=== PATIENT | male | born 1965 | race Caucasian/White ===

== ENCOUNTER 2019-01-08 17:32 | Emergency (ER) | payer SELFPAY ==
[2019-01-08] MEDS ORDERED: Sodium Chloride 0.9% 1,000 ML IV ONE (18:01)
[2019-01-08] MEDS ORDERED: Ketorolac 30 MG/ML SDV IVPUSH ONE (18:11)
--- NOTE | 2019-01-08 18:34 | EDM.PDOC ---
ED HPI GENERAL MEDICAL PROBLEM - General Chief Complaint: Abdominal Pain Stated Complaint: BACK AND KNEE PAIN Time Seen by Provider: 01/08/19 17:41 Source of Information: Reports: Patient History Limitations: Reports: No Limitations - History of Present Illness INITIAL COMMENTS - FREE TEXT/NARRATIVE: HISTORY AND PHYSICAL: History of present illness: Patient is a 53-year-old male presents to the ED today with concern of mid back pain, diarrhea, nausea, and generalized abdominal pain 2-3 days. Patient states today he has had 4 episodes of watery diarrhea. Patient states he has not been on antibiotics recently. Patient states the abdominal pain starts in his mid back and radiates around to the front. Patient states the pain is worse when he moves and better when he lays down. Patient states he had one episode of vomiting today but does have a generalized nausea. Patient states he has not taken anything for the symptoms. Patient states he's had a little bit of shortness of breath but this is typical for his COPD and has not noticed and increase in shortness of breath. Patient has a history of multiple sclerosis, hypertension, COPD, hyperlipidemia , diabetes on oral medications, "small vessel disease of the heart." Patient denies fever, chills, chest pain, or cough. Denies headache, neck stiff ness, change in vision, syncope, or near syncope. Denies dysuria. Has not noted any blood in urine or stool. Review of systems: As per history of present illness and below otherwise all systems reviewed and negative. Past medical history: As per history of present illness and as reviewed below otherwise noncontributory. Surgical history: As per history of present illness and as reviewed below otherwise noncontributory. Social history: See social history for further information Family history: As per history of present illness and as reviewed below otherwise noncontributory. Physical exam: General: Patient is alert, oriented, and in no acute distress. Patient lay ing comfortably on exam table. HEENT: Atraumatic, normocephalic, pupils equal and reactive bilaterally, negative for conjunctival pallor or scleral icterus, mucous membranes moist, TMs normal bilaterally, throat clear, neck supple, nontender, trachea midline. No drooling or trismus noted. No meningeal signs. No hot potato voice noted. Lungs: Clear to auscultation, breath sounds equal bilaterally, chest nontender. Heart: S1S2, regular rate and rhythm without overt murmur Abdomen: Obese, soft, nondistended, generalized mild tenderness. Negative for masses or hepatosplenomegaly. Positive for costovertebral tenderness bilaterally. Pelvis: Stable nontender. Genitourinary: Deferred. Rectal: Deferred. Skin: Intact, warm, dry. No lesions or rashes noted. Extremities/musculoskeletal: Atraumatic, negative for cords or calf pain. Neurovascular unremarkable. No obvious deformities of the complete spine. No step-offs, crepitus, or pain with palpation of the complete spinous processes. Patient does have pain to palpation of the surrounding paraspinous muscles of the thoracic spine. Patient does have full range of motion of complete spine but does have pain with range of motion of the thoracic and lumbar spine. Neuro: Awake, alert, oriented. Cranial nerves II through XII unremarkable. Cerebellum unremarkable. Motor and sensory unremarkable throughout. Exam nonfocal. Notes: Patient was unable to leave a stool sample while in the ED. Stool collection supplies have been provided to him and instructed to limit our lab after he is able to leave sample. Voices understanding and is agreeable to plan of care. Denies any further questions or concerns at this time. Diagnostics: CBC, CMP, EKG, troponin, chest x-ray, UA, lipase, abd/pelvic CT, stool study, Ova and parasite, Cdiff Tox A/B Therapeutics: Saline, Toradol Zofran Prescription: Bentyl Impression: Generalized Abdominal pain, unspecified Diarrhea Plan: 1. Take medication as prescribed. You can alternate ibuprofen and Tylenol as directed for pain and discomfort. 2. Follow-up with your primary care provider as discussed. Return to the ED as needed and as discussed. Definitive disposition and diagnosis as appropriate pending reevaluation and review of above. Abdominal Pain Score (Numeric/FACES): 10 - Related Data Allergies Allergy/AdvReac Type Severity Reaction Status Date / Time No Known Allergies Allergy Verified 01/08/19 17:54 Home Meds: Home Meds Aspirin 81 mg PO DAILY 01/08/19 [History] Cetirizine HCl [Zyrtec] 10 mg PO DAILY 01/08/19 [History] Dicyclomine [Bentyl] 20 mg PO QID PRN #10 tablet 01/08/19 [Rx] Dimethyl Fumarate [Tecfidera] 240 mg PO DAILY 01/08/19 [History] Escitalopram [Lexapro] 20 mg PO DAILY 01/08/19 [History] Gabapentin [Neurontin] 800 mg PO BID 01/08/19 [History] Inhaler, Assist Devices [Aerochamber Mini] 1 each MC DAILY 01/08/19 [History] Lisinopril 10 mg PO DAILY 01/08/19 [History] Omeprazole 20 mg PO DAILY 01/08/19 [History] Ranolazine [Ranexa] 1,000 mg PO DAILY 01/08/19 [History] atorvaSTATin [Lipitor] 40 mg PO BEDTIME 01/08/19 [History] levETIRAcetam [Keppra] 500 mg PO DAILY 01/08/19 [History] metFORMIN [Glucophage XR] 1,000 mg PO BIDMEALS 01/08/19 [History] Past Medical History Cardiovascular History: Reports: High Cholesterol, Hypertension, Pulmonary Hypertension Respiratory History: Reports: COPD Musculoskeletal History: Reports: None Neurological History: Reports: MS Psychiatric History: Reports: Anxiety, Depression Endocrine/Metabolic History: Reports: Diabetes, Type II - Infectious Disease History Infectious Disease History: Reports: None - Past Surgical History HEENT Surgical History: Reports: Adenoidectomy, Tonsillectomy Social & Family History - Family History Family Medical History: Noncontributory - Tobacco Use Smoking Status *Q: Former Smoker Packs/Tins Daily: 1 Used Tobacco, but Quit: Yes Month/Year Tobacco Last Used: 18yr - Caffeine Use Caffeine Use: Reports: Coffee - Recreational Drug Use Recreational Drug Use: No ED ROS GENERAL - Review of Systems Review Of Systems: ROS reveals no pertinent complaints other than HPI. ED EXAM, GENERAL - Physical Exam Exam: See Below (see dictation) Course - Vital Signs Last Recorded V/S: Last Vital Signs Temp 36.6 C 01/08/19 17:55 Pulse 81 01/08/19 17:55 Resp 16 01/08/19 17:55 BP 122/74 01/08/19 17:55 Pulse Ox 97 01/08/19 17:55 - Orders/Labs/Meds Orders: Active Orders 24 hr Category Date Time Status EKG Documentation Completion [RC] STAT Care 01/08/19 18:02 Active CDIFF TOX A+B [OP] Stat Lab 01/08/19 18:02 Ordered CULTURE STOOL + CAMPY+SHIGATOX [RM] Stat Lab 01/08/19 18:02 Ordered OVA & PARASITES BY IMMUNOASSAY [MREF] Stat Lab 01/08/19 18:02 Ordered Labs: Laboratory Tests 01/08/19 01/08/19 01/08/19 Range/Units 18:35 18:35 18:35 WBC 10.19 (4.0-11.0) K/uL RBC 4.31 L (4.50-5.90) M/uL Hgb 13.5 (13.0-17.0) g/dL Hct 40.2 (38.0-50.0) % MCV 93.3 (80.0-98.0) fL MCH 31.3 (27.0-32.0) pg MCHC 33.6 (31.0-37.0) g/dL RDW Std Deviation 43.9 (28.0-62.0) fl RDW Coeff of [place] 13 (11.0-15.0) % Plt Count 339 (150-400) K/uL MPV 9.00 (7.40-12.00) fL Neut % (Auto) 79.9 (48.0-80.0) % Lymph % (Auto) 5.4 L (16.0-40.0) % [place] % (Auto) 10.1 (0.0-15.0) % Eos % (Auto) 4.4 (0.0-7.0) % Baso % (Auto) 0.2 (0.0-1.5) % Neut # (Auto) 8.1 H (1.4-5.7) K/uL Lymph # (Auto) 0.6 (0.6-2.4) K/uL [place] # (Auto) 1.0 H (0.0-0.8) K/uL Eos # (Auto) 0.5 (0.0-0.7) K/uL Baso # (Auto) 0.0 (0.0-0.1) K/uL Nucleated RBC % 0.0 /100WBC Nucleated RBCs # 0 K/uL Sodium 141 (136-148) mmol/L Potassium 3.9 (3.5-5.1) mmol/L Chloride 105 (98-107) mmol/L Carbon Dioxide 25.2 (21.0-32.0) mmol/L BUN 15 (7.0-18.0) mg/dL Creatinine 1.0 (0.8-1.3) mg/dL Est Cr Clr Drug Dosing 80.79 mL/min Estimated GFR (MDRD) > 60.0 ml/min Glucose 119 H (74-106) mg/dL Calcium 8.9 (8.5-10.1) mg/dL Total Bilirubin 0.6 (0.2-1.0) mg/dL AST 28 (15-37) IU/L ALT 66 H (14-63) IU/L Alkaline Phosphatase 52 (46-116) U/L Troponin I < 0.050 (0.000-0.056) ng/mL Total Protein 6.9 (6.4-8.2) g/dL Albumin 4.3 (3.4-5.0) g/dL Globulin 2.6 (2.6-4.0) g/dL Albumin/Globulin Ratio 1.7 H (0.9-1.6) Lipase 388 (73-393) U/L Urine Color Urine Appearance Urine pH (5.0-8.0) Ur Specific [place] (1.001-1.035) Urine Protein (NEGATIVE) mg/dL Urine Glucose (UA) (NEGATIVE) mg/dL Urine Ketones (NEGATIVE) mg/dL Urine Occult Blood (NEGATIVE) Urine Nitrite (NEGATIVE) Urine Bilirubin (NEGATIVE) Urine Ictotest Urine Urobilinogen (<2.0) EU/dL Ur Leukocyte Esterase (NEGATIVE) 01/08/19 Range/Units 19:00 WBC (4.0-11.0) K/uL RBC (4.50-5.90) M/uL Hgb (13.0-17.0) g/dL Hct (38.0-50.0) % MCV (80.0-98.0) fL MCH (27.0-32.0) pg MCHC (31.0-37.0) g/dL RDW Std Deviation (28.0-62.0) fl RDW Coeff of [place] (11.0-15.0) % Plt Count (150-400) K/uL MPV (7.40-12.00) fL Neut % (Auto) (48.0-80.0) % Lymph % (Auto) (16.0-40.0) % [place] % (Auto) (0.0-15.0) % Eos % (Auto) (0.0-7.0) % Baso % (Auto) (0.0-1.5) % Neut # (Auto) (1.4-5.7) K/uL Lymph # (Auto) (0.6-2.4) K/uL [place] # (Auto) (0.0-0.8) K/uL Eos # (Auto) (0.0-0.7) K/uL Baso # (Auto) (0.0-0.1) K/uL Nucleated RBC % /100WBC Nucleated RBCs # K/uL Sodium (136-148) mmol/L Potassium (3.5-5.1) mmol/L Chloride (98-107) mmol/L Carbon Dioxide (21.0-32.0) mmol/L BUN (7.0-18.0) mg/dL Creatinine (0.8-1.3) mg/dL Est Cr Clr Drug Dosing mL/min Estimated GFR (MDRD) ml/min Glucose (74-106) mg/dL Calcium (8.5-10.1) mg/dL Total Bilirubin (0.2-1.0) mg/dL AST (15-37) IU/L ALT (14-63) IU/L Alkaline Phosphatase (46-116) U/L Troponin I (0.000-0.056) ng/mL Total Protein (6.4-8.2) g/dL Albumin (3.4-5.0) g/dL Globulin (2.6-4.0) g/dL Albumin/Globulin Ratio (0.9-1.6) Lipase (73-393) U/L Urine Color YELLOW Urine Appearance CLEAR Urine pH 7.5 (5.0-8.0) Ur Specific [place] 1.020 (1.001-1.035) Urine Protein NEGATIVE (NEGATIVE) mg/dL Urine Glucose (UA) NEGATIVE (NEGATIVE) mg/dL Urine Ketones NEGATIVE (NEGATIVE) mg/dL Urine Occult Blood NEGATIVE (NEGATIVE) Urine Nitrite NEGATIVE (NEGATIVE) Urine Bilirubin SMALL H (NEGATIVE) Urine Ictotest NEGATIVE Urine Urobilinogen 0.2 (<2.0) EU/dL Ur Leukocyte Esterase NEGATIVE (NEGATIVE) Meds: Medications Discontinued Medications Generic Name Dose Route Start Last Admin Trade Name Freq PRN Reason Stop Dose Admin Sodium Chloride 1,000 mls @ 999 mls/hr 01/08/19 18:01 01/08/19 18:33 Normal Saline IV 01/08/19 19:01 999 mls/hr BOLUS ONE Administration Iopamidol 100 ml 01/08/19 19:27 01/08/19 19:28 Isovue Multipack-370 (76%) IVPUSH 01/08/19 19:28 100 ml ONETIME STA Administration Ketorolac Tromethamine 30 mg 01/08/19 18:11 01/08/19 18:35 Toradol IVPUSH 01/08/19 18:12 30 mg ONETIME ONE Administration Departure - Departure Time of Disposition: 20:29 Disposition: Home, Self-Care 01 Clinical Impression: Generalized abdominal discomfort Diarrhea Qualifiers: Diarrhea type: unspecified type Qualified Code(s): R19.7 - Diarrhea, unspecified - Discharge Information Referrals: PCP,Unknown [Primary Care Provider] - Forms: ED Department Discharge Additional Instructions: The following information is given to patients seen in the emergency department who are being discharged to home. This information is to outline your options for follow-up care. We provide all patients seen in our emergency department with a follow-up referral. The need for follow-up, as well as the timing and circumstances, are variable depending upon the specifics of your emergency department visit. If you don't have a primary care physician on staff, we will provide you with a referral. We always advise you to contact your personal physician following an emergency department visit to inform them of the circumstance of the visit and for follow-up with them and/or the need for any referrals to a consulting specialist. The emergency department will also refer you to a specialist when appropriate. This referral assures that you have the opportunity for follow-up care with a specialist. All of these measure are taken in an effort to provide you with optimal care, which includes your follow-up. Under all circumstances we always encourage you to contact your private physician who remains a resource for coordinating your care. When calling for follow-up care, please make the office aware that this follow-up is from your recent emergency room visit. If for any reason you are refused follow-up, please contact the [facility] Emergency Department at and asked to speak to the emergency department charge nurse. RENATA [facility] [address] [place] [address] [facility] [address] [place] [address] 1. Take medication as prescribed. You can alternate ibuprofen and Tylenol as directed for pain and discomfort. 2. Follow-up with your primary care provider as discussed. Return to the ED as needed and as discussed. - My Orders Last 24 Hours: My Active Orders 01/08/19 18:02 EKG Documentation Completion [RC] STAT CDIFF TOX A+B [OP] Stat CULTURE STOOL + CAMPY+SHIGATOX [RM] Stat OVA & PARASITES BY IMMUNOASSAY [MREF] Stat - Assessment/Plan Last 24 Hours: My Active Orders 01/08/19 18:02 EKG Documentation Completion [RC] STAT CDIFF TOX A+B [OP] Stat CULTURE STOOL + CAMPY+SHIGATOX [RM] Stat OVA & PARASITES BY IMMUNOASSAY [MREF] Stat
[2019-01-08 19:13] LABS: CHLORIDE,CL 105 mmol/L (98-107); SODIUM,NA 141 mmol/L (136-148)
[2019-01-08] MEDS ORDERED: Iopamidol 755 MG/ML 500 ML Multipack Bottle IVPUSH STA (19:27)
--- NOTE | 2019-01-08 19:47 | CR ---
INDICATION: SOB TECHNIQUE: Chest 1 view. COMPARISON: None. FINDINGS: Cardiovascular and mediastinum: Heart size and vasculature are normal in caliber and appearance. Mediastinum is within normal limits. Lungs and pleural space: Lungs are clear. No sign of infiltrate or mass. No sign of pleural effusion. No pneumothorax. Bones and soft tissues: No significant findings. IMPRESSION: Unremarkable chest. Dictated by: Jose J James MD @ 01/08/2019 19:46:01 (Electronically Signed)
--- NOTE | 2019-01-08 20:17 | CT ---
INDICATION: Abdominal pain, nausea, vomiting, diarrhea TECHNIQUE: CT abdomen and pelvis acquired with IV contrast. 100 cc Isovue 370 COMPARISON: None FINDINGS: Lower chest: Unremarkable. Liver: Hepatic steatosis. Spleen: Unremarkable. Pancreas: Unremarkable. Gallbladder and bile ducts: Unremarkable. Kidneys: Subcentimeter left renal cyst. Adrenal glands: Unremarkable. GI tract: Unremarkable. Appendix is normal. Vascular structures: Unremarkable. Lymph nodes: Unremarkable. Miscellaneous: Fat containing umbilical hernia. No free air or significant free fluid. Pelvic Organs: Mild prostatomegaly with diffuse bladder wall thickening. Bones: Unremarkable for age. IMPRESSION: No findings to explain the patient`s symptoms. Hepatic steatosis. Mild prostatomegaly with diffuse bladder wall thickening. Dictated by Jose J James MD @ 01/08/2019 8:16:09 PM Please note that all CT scans at this facility use dose modulation, iterative reconstruction, and/or weight-based dosing when appropriate to reduce radiation dose to as low as reasonably achievable. Dictated by: Jose J James MD @ 01/08/2019 20:16:30 (Electronically Signed)
== END 2019-01-08 20:48 | disposition home or self-care (01) ==
LOC: MW.ED 17:32
DX: R19.7 Diarrhea, unspecified (principal); I10 Essential (primary) hypertension; J44.9 Chronic obstructive pulmonary disease, unspecified; E11.9 Type 2 diabetes mellitus without complications; F41.9 Anxiety disorder, unspecified; F32.9 Major depressive disorder, single episode, unspecified; E78.00 Pure hypercholesterolemia, unspecified; Z79.82 Long term (current) use of aspirin; Z79.84 Long term (current) use of oral hypoglycemic drugs; Z79.899 Other long term (current) drug therapy
CPT/HCPCS: 71045; 74177; 80053; 81003; 83690; 84484; 85025; 93005; 96361; 96374; 99284; J1885; J7040; Q9967

== ENCOUNTER 2019-01-23 22:38 | Observation (INO) | payer OTHER ==
[2019-01-23] MEDS ORDERED: Ondansetron 4 MG/2 ML SDV IVPUSH ONE (22:49)
[2019-01-23] MEDS ORDERED: Sodium Chloride 0.9% 10 ML Syringe FLUSH PRN (22:49)
[2019-01-23] MEDS ORDERED: Sodium Chloride 0.9% 1,000 ML IV ONE (22:49)
[2019-01-23] MEDS ORDERED: Sodium Chloride 0.9% 2.5 ML Syringe FLUSH PRN (22:49)
--- NOTE | 2019-01-23 22:51 | EDM.PDOC ---
<Michell Meyer - Last Filed: 01/23/19 23:16> ED HPI GENERAL MEDICAL PROBLEM - General Chief Complaint: Gastrointestinal Problem Stated Complaint: PT VOMITING Time Seen by Provider: 01/23/19 22:48 Source of Information: Reports: Patient History Limitations: Reports: No Limitations - History of Present Illness INITIAL COMMENTS - FREE TEXT/NARRATIVE: HISTORY AND PHYSICAL: History of present illness: Patient is a 53-year-old male presents to the ED with complaint of vomiting and diarrhea. He states he has had multiple episodes of diarrhea since this morning. This afternoon he states he had 2 episodes of vomiting. He was having some back pain but took a norco and states this resolved. He did have some abdominal pain earlier as well. He denies chest, pain, SOB, fevers, chills. Review of systems: As per history of present illness and below otherwise all systems reviewed and negative. Past medical history: As per history of present illness and as reviewed below otherwise noncontributory. Surgical history: As per history of present illness and as reviewed below otherwise noncontributory. Social history: No reported history of drug or alcohol abuse. Family history: As per history of present illness and as reviewed below otherwise noncontributory. Physical exam: General: Patient sitting comfortably in no acute distress and nontoxic appearing HEENT: Atraumatic, normocephalic, pupils reactive, negative for conjunctival pallor or scleral icterus, mucous membranes moist, throat clear, neck supple, nontender, trachea midline. No meningeal signs. Lungs: Clear to auscultation, breath sounds equal bilaterally, chest nontender. Heart: S1S2, regular, negative for clicks, rubs, or overt murmur. Abdomen: Soft, nondistended, nontender. Negative for masses or hepatosplenomegaly. Negative for costovertebral tenderness. No rigidity, rebound , guarding. Pelvis: Stable nontender. Genitourinary: Deferred. Rectal: Deferred. Extremities: Atraumatic, negative for cords or calf pain. Neurovascular unremarkable. Neuro: Awake, alert, oriented. Cranial nerves II through XII unremarkable. Cerebellum unremarkable. Motor and sensory unremarkable throughout. Exam nonfocal. Notes: Diagnostics: CBC, CMP, Lipase, UA Therapeutics: 1L NS IV 4mg Zofran IV Prescriptions: Impression: Gastroenteritis Plan: Drink plenty of small sips of fluids throughout the day and bland food as tolerated Follow-up with primary care provider Return to ED as needed as discussed Definitive disposition and diagnosis as appropriate pending reevaluation and review of above. no pain Pain Score (Numeric/FACES): 0 - Related Data Allergies Allergy/AdvReac Type Severity Reaction Status Date / Time No Known Allergies Allergy Verified 01/23/19 22:41 Home Meds: Home Meds Aspirin 81 mg PO DAILY 01/08/19 [History] Cetirizine HCl [Zyrtec] 10 mg PO DAILY 01/08/19 [History] Dicyclomine [Bentyl] 20 mg PO QID PRN #10 tablet 01/08/19 [Rx] Dimethyl Fumarate [Tecfidera] 240 mg PO DAILY 01/08/19 [History] Escitalopram [Lexapro] 20 mg PO DAILY 01/08/19 [History] Gabapentin [Neurontin] 800 mg PO BID 01/08/19 [History] Inhaler, Assist Devices [Aerochamber Mini] 1 each MC DAILY 01/08/19 [History] Lisinopril 10 mg PO DAILY 01/08/19 [History] Omeprazole 20 mg PO DAILY 01/08/19 [History] Ranolazine [Ranexa] 1,000 mg PO DAILY 01/08/19 [History] atorvaSTATin [Lipitor] 40 mg PO BEDTIME 01/08/19 [History] levETIRAcetam [Keppra] 500 mg PO DAILY 01/08/19 [History] metFORMIN [Glucophage XR] 1,000 mg PO BIDMEALS 01/08/19 [History] Past Medical History Cardiovascular History: Reports: High Cholesterol, Hypertension, Pulmonary Hypertension Respiratory History: Reports: COPD Musculoskeletal History: Reports: None Neurological History: Reports: MS Psychiatric History: Reports: Anxiety, Depression Endocrine/Metabolic History: Reports: Diabetes, Type II - Infectious Disease History Infectious Disease History: Reports: None - Past Surgical History HEENT Surgical History: Reports: Adenoidectomy, Tonsillectomy Social & Family History - Family History Family Medical History: Noncontributory - Tobacco Use Smoking Status *Q: Never Smoker - Caffeine Use Caffeine Use: Reports: Coffee - Recreational Drug Use Recreational Drug Use: No ED ROS GENERAL - Review of Systems Review Of Systems: ROS reveals no pertinent complaints other than HPI. ED EXAM, GI/ABD - Physical Exam Exam: See Below (see dictation) Course - Vital Signs Last Recorded V/S: Last Vital Signs Temp 36.1 C 01/24/19 00:28 Pulse 88 01/24/19 00:28 Resp 18 01/24/19 00:28 BP 125/66 01/24/19 00:28 Pulse Ox 95 01/24/19 00:28 - Orders/Labs/Meds Orders: Active Orders 24 hr Category Date Time Status UA RFX STONEY AND CULT IF INDIC [URIN] Stat Lab 01/24/19 00:20 Received Sodium Chloride 0.9% [Saline Flush] Med 01/23/19 22:49 Active 10 ml FLUSH ASDIRECTED PRN Sodium Chloride 0.9% [Saline Flush] Med 01/23/19 22:49 Active 2.5 ml FLUSH ASDIRECTED PRN Saline Lock Insert [OM.PC] Stat Oth 01/23/19 22:49 Ordered Medication Orders Sodium Chloride (Saline Flush) 10 ml FLUSH ASDIRECTED PRN PRN Reason: Keep Vein Open Sodium Chloride (Saline Flush) 2.5 ml FLUSH ASDIRECTED PRN PRN Reason: Keep Vein Open Labs: Laboratory Tests 01/23/19 01/23/19 Range/Units 23:00 23:00 WBC 11.99 H (4.0-11.0) K/uL RBC 4.89 (4.50-5.90) M/uL Hgb 15.4 (13.0-17.0) g/dL Hct 45.8 (38.0-50.0) % MCV 93.7 (80.0-98.0) fL MCH 31.5 (27.0-32.0) pg MCHC 33.6 (31.0-37.0) g/dL RDW Std Deviation 44.6 (28.0-62.0) fl RDW Coeff of Carol 13 (11.0-15.0) % Plt Count 377 (150-400) K/uL MPV 10.00 (7.40-12.00) fL Neut % (Auto) 77.1 (48.0-80.0) % Lymph % (Auto) 13.2 L (16.0-40.0) % [place] % (Auto) 5.3 (0.0-15.0) % Eos % (Auto) 4.2 (0.0-7.0) % Baso % (Auto) 0.2 (0.0-1.5) % Neut # (Auto) 9.3 H (1.4-5.7) K/uL Lymph # (Auto) 1.6 (0.6-2.4) K/uL [place] # (Auto) 0.6 (0.0-0.8) K/uL Eos # (Auto) 0.5 (0.0-0.7) K/uL Baso # (Auto) 0.0 (0.0-0.1) K/uL Nucleated RBC % 0.0 /100WBC Nucleated RBCs # 0 K/uL Sodium 140 (136-148) mmol/L Potassium 3.3 L (3.5-5.1) mmol/L Chloride 101 (98-107) mmol/L Carbon Dioxide 23.0 (21.0-32.0) mmol/L BUN 12 (7.0-18.0) mg/dL Creatinine 1.1 (0.8-1.3) mg/dL Est Cr Clr Drug Dosing 73.44 mL/min Estimated GFR (MDRD) > 60.0 ml/min Glucose 160 H (74-106) mg/dL Calcium 9.5 (8.5-10.1) mg/dL Total Bilirubin 0.6 (0.2-1.0) mg/dL AST 29 (15-37) IU/L ALT 72 H (14-63) IU/L Alkaline Phosphatase 58 (46-116) U/L Total Protein 7.4 (6.4-8.2) g/dL Albumin 4.5 (3.4-5.0) g/dL Globulin 2.9 (2.6-4.0) g/dL Albumin/Globulin Ratio 1.6 (0.9-1.6) Lipase 657 H (73-393) U/L Meds: Medications Generic Name Dose Route Start Last Admin Trade Name Freq PRN Reason Stop Dose Admin Sodium Chloride 10 ml 01/23/19 22:49 Saline Flush FLUSH ASDIRECTED PRN Keep Vein Open Sodium Chloride 2.5 ml 01/23/19 22:49 Saline Flush FLUSH ASDIRECTED PRN Keep Vein Open Discontinued Medications Generic Name Dose Route Start Last Admin Trade Name Freq PRN Reason Stop Dose Admin Sodium Chloride 1,000 mls @ 999 mls/hr 01/23/19 22:49 01/23/19 23:08 Normal Saline IV 01/23/19 23:49 999 mls/hr STAT ONE Administration Ondansetron HCl 4 mg 01/23/19 22:49 01/23/19 23:08 Zofran IVPUSH 01/23/19 22:50 4 mg ONETIME ONE Administration Departure - Departure Disposition: Refer to Observation Condition: Good Clinical Impression: Gastroenteritis, Pancreatitis, Dehydration - Discharge Information Referrals: PCP,None [Primary Care Provider] - Forms: ED Department Discharge <Jerald Garland - Last Filed: 01/24/19 00:30> Course - Vital Signs Text/Narrative:: Patient's lab work was remarkable for elevated lipase at 657 patient's pain has improved he still does have some mild nausea I discussed with patient admission for observation and he agrees to discuss case with hospitalist admit patient is observation diagnosis of pancreatitis Departure - Departure Time of Disposition: 00:29
[2019-01-24 00:10] LABS: CHLORIDE,CL 101 mmol/L (98-107); SODIUM,NA 140 mmol/L (136-148)
[2019-01-24] MEDS ORDERED: Pantoprazole 40 MG in Sodium Chloride 0.9% 10 ML IV ONE (01:45)
[2019-01-24] MEDS ORDERED: Morphine 2 MG/ML Syringe IVPUSH PRN (01:46)
[2019-01-24] MEDS ORDERED: Ondansetron 4 MG/2 ML SDV IVPUSH PRN (01:48)
[2019-01-24] MEDS ORDERED: Sodium Chloride 0.9% 1,000 ML IV ONE (02:00)
[2019-01-24] MEDS: Sodium Chloride 0.9% 1,000 ML IV SCH ×3 (03:10→13:56)
[2019-01-24 06:50] LABS: CHLORIDE,CL 106 mmol/L (98-107); SODIUM,NA 141 mmol/L (136-148)
--- NOTE | 2019-01-24 08:25 | PCM.HP.2 ---
H&P History of Present Illness - General Date of Service: 01/24/19 Admit Problem/Dx: Admission Diagnosis/Problem Admission Diagnosis/Problem Pancreatitis - History of Present Illness Initial Comments - Free Text/Narative: His diarrhea started in the morning. He describes it as a liquid stool with no black or bloody stool. He started vomiting in the afternoon. He denies any bloody or bilious emesis. He denies any abdominal pain, fever, chills, chest pain, shortness of breath. He denies any recent sick contacts, new foods, recent antibiotics. The patient still has his gallbladder is never had any issues with it. The patient denies any alcohol use. In the ER, labs showed slight white count 11.9, CMP that any significant findings and elevated lipase at 657 and a UA without signs of infection. He was given IV fluids and Zofran. chronic back Pain Score (Numeric/FACES): 6 - Related Data Allergies/Adverse Reactions: Allergies Allergy/AdvReac Type Severity Reaction Status Date / Time No Known Allergies Allergy Verified 01/24/19 01:03 Home Medications: Home Meds Aspirin 81 mg PO DAILY 01/08/19 [History] Dimethyl Fumarate [Tecfidera] 240 mg PO DAILY 01/08/19 [History] Escitalopram [Lexapro] 20 mg PO DAILY 01/08/19 [History] Gabapentin [Neurontin] 800 mg PO BID 01/08/19 [History] Inhaler, Assist Devices [Aerochamber Mini] 1 each MC DAILY 01/08/19 [History] Lisinopril 10 mg PO DAILY 01/08/19 [History] Omeprazole 40 mg PO DAILY 01/08/19 [History] Ranolazine [Ranexa] 1,000 mg PO DAILY 01/08/19 [History] atorvaSTATin [Lipitor] 40 mg PO DAILY 01/08/19 [History] levETIRAcetam [Keppra] 500 mg PO BID 01/08/19 [History] metFORMIN [Glucophage XR] 1,000 mg PO BIDMEALS 01/08/19 [History] Acetaminophen/HYDROcodone [[place] 325-10 MG] 1 tab PO Q4H PRN 01/24/19 [History] Multivit with Iron,Minerals [Spectravite Senior] 1 tab PO DAILY 01/24/19 [ History] Vancomycin HCl 125 mg PO Q6HR 10 Days #40 capsule 01/24/19 [Rx] Past Medical History HEENT History: Reports: Impaired Vision Other HEENT History: glasses Cardiovascular History: Reports: High Cholesterol, Hypertension, Pulmonary Hypertension Respiratory History: Reports: COPD Musculoskeletal History: Reports: Back Pain, Chronic, Neck Pain, Chronic Neurological History: Reports: MS, Neuropathy, Diabetic Psychiatric History: Reports: Anxiety, Depression Endocrine/Metabolic History: Reports: Diabetes, Type II - Infectious Disease History Infectious Disease History: Reports: None - Past Surgical History HEENT Surgical History: Reports: Adenoidectomy, Tonsillectomy Male Surgical History: Reports: Circumcision Neurological Surgical History: Reports: Spinal Fusion Other Neurological Surgeries/Procedures: C5-C6 Social & Family History - Family History Family Medical History: Noncontributory - Tobacco Use Smoking Status *Q: Former Smoker Used Tobacco, but Quit: Yes Month/Year Tobacco Last Used: 05/1999 - Caffeine Use Caffeine Use: Reports: Soda - Alcohol Use Alcohol Use History: No - Recreational Drug Use Recreational Drug Use: No H&P Review of Systems - Review of Systems: Review Of Systems: See Below General: Reports: No Symptoms HEENT: Reports: No Symptoms Pulmonary: Reports: No Symptoms Cardiovascular: Reports: No Symptoms Gastrointestinal: Reports: Diarrhea, Vomiting. Denies: Abdominal Pain, Hematemesis, Hematochezia, Melena Genitourinary: Reports: No Symptoms Musculoskeletal: Reports: No Symptoms Skin: Reports: No Symptoms Psychiatric: Reports: No Symptoms Neurological: Reports: No Symptoms Hematologic/Lymphatic: Reports: No Symptoms Immunologic: Reports: No Symptoms Exam - Exam Exam: See Below - Vital Signs Vital Signs: Last Vital Signs Temp 98.2 F 01/24/19 04:00 Pulse 82 01/24/19 04:00 Resp 17 01/24/19 04:00 BP 118/66 01/24/19 04:00 Pulse Ox 94 L 01/24/19 04:00 Weight: 111.357 kg - Exam General: Alert, Oriented, Cooperative HEENT: Conjunctiva Clear, Mucosa Moist & [place], Posterior Pharynx Clear, Pupils Equal, Pupils Reactive Neck: Supple, Trachea Midline Lungs: Clear to Auscultation, Normal Respiratory Effort Cardiovascular: Regular Rate, Regular Rhythm GI/Abdominal Exam: Normal Bowel Sounds, Soft, Non-Tender, No Distention. No: Guarding, Rigid Extremities: No Pedal Edema Skin: Warm, Dry, Intact Neuro Extensive - Mental Status: Alert, Oriented x3 Psychiatric: Alert, Normal Affect, Normal Mood - Patient Data Lab Results Last 24 hrs: Laboratory Results - last 24 hr 01/23/19 01/23/19 01/24/19 Range/Units 23:00 23:00 00:20 WBC 11.99 H (4.0-11.0) K/uL RBC 4.89 (4.50-5.90) M/uL Hgb 15.4 (13.0-17.0) g/dL Hct 45.8 (38.0-50.0) % MCV 93.7 (80.0-98.0) fL MCH 31.5 (27.0-32.0) pg MCHC 33.6 (31.0-37.0) g/dL RDW Std Deviation 44.6 (28.0-62.0) fl RDW Coeff of Carol 13 (11.0-15.0) % Plt Count 377 (150-400) K/uL MPV 10.00 (7.40-12.00) fL Neut % (Auto) 77.1 (48.0-80.0) % Lymph % (Auto) 13.2 L (16.0-40.0) % [place] % (Auto) 5.3 (0.0-15.0) % Eos % (Auto) 4.2 (0.0-7.0) % Baso % (Auto) 0.2 (0.0-1.5) % Neut # (Auto) 9.3 H (1.4-5.7) K/uL Lymph # (Auto) 1.6 (0.6-2.4) K/uL [place] # (Auto) 0.6 (0.0-0.8) K/uL Eos # (Auto) 0.5 (0.0-0.7) K/uL Baso # (Auto) 0.0 (0.0-0.1) K/uL Nucleated RBC % 0.0 /100WBC Nucleated RBCs # 0 K/uL Sodium 140 (136-148) mmol/L Potassium 3.3 L (3.5-5.1) mmol/L Chloride 101 (98-107) mmol/L Carbon Dioxide 23.0 (21.0-32.0) mmol/L BUN 12 (7.0-18.0) mg/dL Creatinine 1.1 (0.8-1.3) mg/dL Est Cr Clr Drug Dosing 73.44 mL/min Estimated GFR (MDRD) > 60.0 ml/min Glucose 160 H (74-106) mg/dL Calcium 9.5 (8.5-10.1) mg/dL Total Bilirubin 0.6 (0.2-1.0) mg/dL AST 29 (15-37) IU/L ALT 72 H (14-63) IU/L Alkaline Phosphatase 58 (46-116) U/L Total Protein 7.4 (6.4-8.2) g/dL Albumin 4.5 (3.4-5.0) g/dL Globulin 2.9 (2.6-4.0) g/dL Albumin/Globulin Ratio 1.6 (0.9-1.6) Lipase 657 H (73-393) U/L Urine Color YELLOW Urine Appearance CLEAR Urine pH 5.5 (5.0-8.0) Ur Specific [place] >= 1.030 (1.001-1.035) Urine Protein NEGATIVE (NEGATIVE) mg/dL Urine Glucose (UA) NEGATIVE (NEGATIVE) mg/dL Urine Ketones NEGATIVE (NEGATIVE) mg/dL Urine Occult Blood NEGATIVE (NEGATIVE) Urine Nitrite NEGATIVE (NEGATIVE) Urine Bilirubin NEGATIVE (NEGATIVE) Urine Urobilinogen 0.2 (<2.0) EU/dL Ur Leukocyte Esterase NEGATIVE (NEGATIVE) 01/24/19 01/24/19 Range/Units 06:01 06:01 WBC 8.54 (4.0-11.0) K/uL RBC 4.30 L (4.50-5.90) M/uL Hgb 13.2 (13.0-17.0) g/dL Hct 40.5 (38.0-50.0) % MCV 94.2 (80.0-98.0) fL MCH 30.7 (27.0-32.0) pg MCHC 32.6 (31.0-37.0) g/dL RDW Std Deviation 44.6 (28.0-62.0) fl RDW Coeff of Carol 13 (11.0-15.0) % Plt Count 286 (150-400) K/uL MPV 9.50 (7.40-12.00) fL Neut % (Auto) 68.1 (48.0-80.0) % Lymph % (Auto) 8.4 L (16.0-40.0) % [place] % (Auto) 15.0 (0.0-15.0) % Eos % (Auto) 8.3 H (0.0-7.0) % Baso % (Auto) 0.2 (0.0-1.5) % Neut # (Auto) 5.8 H (1.4-5.7) K/uL Lymph # (Auto) 0.7 (0.6-2.4) K/uL [place] # (Auto) 1.3 H (0.0-0.8) K/uL Eos # (Auto) 0.7 (0.0-0.7) K/uL Baso # (Auto) 0.0 (0.0-0.1) K/uL Nucleated RBC % 0.0 /100WBC Nucleated RBCs # 0 K/uL Sodium 141 (136-148) mmol/L Potassium 3.6 (3.5-5.1) mmol/L Chloride 106 (98-107) mmol/L Carbon Dioxide 25.4 (21.0-32.0) mmol/L BUN 11 (7.0-18.0) mg/dL Creatinine 1.0 (0.8-1.3) mg/dL Est Cr Clr Drug Dosing 80.79 mL/min Estimated GFR (MDRD) > 60.0 ml/min Glucose 140 H (74-106) mg/dL Calcium 7.8 L (8.5-10.1) mg/dL Total Bilirubin 0.6 (0.2-1.0) mg/dL AST 27 (15-37) IU/L ALT 60 (14-63) IU/L Alkaline Phosphatase 50 (46-116) U/L Total Protein 5.9 L (6.4-8.2) g/dL Albumin 3.5 (3.4-5.0) g/dL Globulin 2.4 L (2.6-4.0) g/dL Albumin/Globulin Ratio 1.5 (0.9-1.6) Lipase (73-393) U/L Urine Color Urine Appearance Urine pH (5.0-8.0) Ur Specific [place] (1.001-1.035) Urine Protein (NEGATIVE) mg/dL Urine Glucose (UA) (NEGATIVE) mg/dL Urine Ketones (NEGATIVE) mg/dL Urine Occult Blood (NEGATIVE) Urine Nitrite (NEGATIVE) Urine Bilirubin (NEGATIVE) Urine Urobilinogen (<2.0) EU/dL Ur Leukocyte Esterase (NEGATIVE) Result Diagrams: 01/24/19 06:01 01/24/19 06:01 Problem List Initiated/Reviewed/Updated: Yes Orders Last 24hrs: Active Orders 24 hr Category Date Time Status Patient Status [ADT] Stat ADT 01/24/19 00:30 Active Accu Check [Blood Glucose Check, Bedside] [RC] TIDMEALS Care 01/24/19 08:17 Ordered Antiembolic Devices [RC] PER UNIT ROUTINE Care 01/24/19 08:15 Ordered Intake and Output Strict [RC] ASDIRECTED Care 01/24/19 08:14 Ordered Vital Signs [RC] PER UNIT ROUTINE Care 01/24/19 08:14 Ordered Nothing Per Oral Diet [DIET] Diet 01/24/19 Breakfast Active Abdomen Ltd [US] Routine Exams 01/24/19 08:00 Ordered LIPID PANEL [CHEM] Routine Lab 01/24/19 06:19 Received Insulin Aspart [NovoLOG] Med 01/24/19 11:30 Ordered See Protocol SUBCUT TIDAC Morphine Med 01/24/19 01:46 Active 2 mg IVPUSH Q3H PRN Ondansetron [Zofran] Med 01/24/19 01:48 Active 4 mg IVPUSH Q3H PRN Sodium Chloride 0.9% [Normal Saline] 1,000 ml Med 01/24/19 03:00 Active IV ASDIRECTED Sodium Chloride 0.9% [Saline Flush] Med 01/23/19 22:49 Active 10 ml FLUSH ASDIRECTED PRN Sodium Chloride 0.9% [Saline Flush] Med 01/23/19 22:49 Active 2.5 ml FLUSH ASDIRECTED PRN SCD [Sequential Compression Device] [OM.PC] Routine Oth 01/24/19 08:14 Ordered Saline Lock Insert [OM.PC] Stat Oth 01/23/19 22:49 Ordered Resuscitation Status Routine Resus Stat 01/24/19 08:14 Ordered Medication Orders Sodium Chloride (Normal Saline) 1,000 mls @ 200 mls/hr IV ASDIRECTED VITALIY Last Admin: 01/24/19 08:09 Dose: 200 mls/hr Infusion: 01/24/19 08:09 Dose: 200 mls/hr Admin: 01/24/19 03:10 Dose: 200 mls/hr Insulin Aspart (Novolog) 0 unit SUBCUT TIDAC VITALIY; Protocol Morphine Sulfate (Morphine) 2 mg IVPUSH Q3H PRN PRN Reason: Pain (moderate 4-6) Last Admin: 01/24/19 02:12 Dose: 2 mg Ondansetron HCl (Zofran) 4 mg IVPUSH Q3H PRN PRN Reason: Nausea/Vomiting Sodium Chloride (Saline Flush) 10 ml FLUSH ASDIRECTED PRN PRN Reason: Keep Vein Open Sodium Chloride (Saline Flush) 2.5 ml FLUSH ASDIRECTED PRN PRN Reason: Keep Vein Open Assessment/Plan Comment:: 1.Admit for observation 2. Code status- full 3. Vitals per routine 4. I/Os per routine 5. Diet- NPO 6. DVT prophylaxis with SCDs 7. gastroenteritis vs pancreatitis- continue NPO and IVF. US of abdomen showed fatty liver, no CBD dilation, no pancreatic pathology, and no gallbaldder stones /pathology. Patient denies alcohol use, hx of gallbladder issues, and is on lipitor for cholesterol. Lipid panel checked and TG 112. Zofran for nausea/ vomiting, morphine for pain. Stool studies ordered for diarrhea. 8. Chronic conditions- HTN, hyperlipidemia, MS, depression/axniety- continue home meds 9. DMII- accuchecks and sliding scale Discharge: The patient was monitored throughout the day, he was feeling much better and requesting discharge this afternoon. US did not show any acute findings. Stool studies did show that he was positive for C.Diff, Campylobacter was negative and Shiga/culture were pending. Patient will be discharged home on regular home meds and oral vancomycin 125 mg q 6 x 10 days. He is a return to usual diet as tolerated, activity as tolerated. Symptoms report physician include chest pain, shortness of breath, abdominal pain, worsening diarrhea, fever, chills discharge, erythema, or not improving as expected. Follow-up with PCP within one to two weeks.
--- NOTE | 2019-01-24 10:25 | US ---
INDICATION: Pancreatitis. COMPARISON: CT abdomen and pelvis with intravenous contrast January 08, 2019. TECHNIQUE: Ultrasound examination of the right upper quadrant of the abdomen. FINDINGS: Diffuse and marked increase in echogenicity throughout the liver ; Fatty infiltration of the liver. No focal hepatic pathology. No evidence of cholelithiasis. Nondilated common bile duct measuring 2.3 mm in diameter. Gallbladder wall is measuring 1.7 mm in thickness without any pericholecystic fluid collections. Sonographic Nance`s sign is negative. No pancreatic pathology. Right kidney is measuring 13.2 cm in the maximum vertical dimension without any obstructive uropathy or perinephric pathology. IMPRESSION: 1. Marked and diffuse increase in echogenicity of the liver; rule out fatty infiltration. 2. Nondilated common bile duct. 3. No pancreatic pathology. 4. No evidence of cholelithiasis. Dictated by Bina Mortensen MD @ Jan 24 2019 10:19AM Signed by Dr. Bina Mortensen @ Jan 24 2019 10:22AM
[2019-01-24] MEDS ORDERED: Insulin Aspart 100 Units/ML 3 ML Pen SUBCUT SCH (11:30)
== END 2019-01-24 16:30 | disposition home or self-care (01) ==
LOC: MW.ED 22:38 → MW.MS 01-24 00:30
PROVIDERS: ADMIT Internal Medicine; ATTEND Internal Medicine
DX: R19.7 Diarrhea, unspecified (principal); R11.2 Nausea with vomiting, unspecified; I10 Essential (primary) hypertension; I27.20 Pulmonary hypertension, unspecified; E11.40 Type 2 diabetes mellitus with diabetic neuropathy, unspecified; E78.00 Pure hypercholesterolemia, unspecified; J44.9 Chronic obstructive pulmonary disease, unspecified; K76.0 Fatty (change of) liver, not elsewhere classified; F41.9 Anxiety disorder, unspecified; F32.9 Major depressive disorder, single episode, unspecified; Z87.891 Personal history of nicotine dependence; Z79.82 Long term (current) use of aspirin; Z79.84 Long term (current) use of oral hypoglycemic drugs; Z79.899 Other long term (current) drug therapy
CPT/HCPCS: 36415; 76705; 80053; 80061; 81003; 82962; 83690; 85025; 87046; 87324; 96361; 96374; 99284; C9113; J2270; J2405; J7040; J7050; 96375; G0378

== ENCOUNTER 2019-02-18 09:36 | Emergency (ER) | payer MEDICAID, OTHER ==
[2019-02-18] MEDS ORDERED: Nitroglycerin 0.4 MG Tab.SL SL PRN (09:40)
[2019-02-18] MEDS ORDERED: Aspirin 81 MG Tab.Chew PO ONE (09:40)
--- NOTE | 2019-02-18 09:41 | EDM.PDOC ---
ED HPI GENERAL MEDICAL PROBLEM - General Stated Complaint: SOB Time Seen by Provider: 02/18/19 09:40 Source of Information: Reports: Patient - History of Present Illness INITIAL COMMENTS - FREE TEXT/NARRATIVE: HISTORY AND PHYSICAL: History of present illness: [Patient with diabetes and COPD presents with shortness breath and end expiratory wheeze, he has been off his Trilogy inhaler as he is recently moved [place] has been trouble getting medication cleared by insurance However he is in no distress no pursed lip breathing no retractions no tripoding as a shooting DuoNeb and Solu-Medrol has alleviated symptoms he is currently comfortable completely clear on exam he does have an nebulizer at home with albuterol medication he has not been using this as of yet No fever nausea vomiting chills sweats no chest pain no current shortness of breath headache dizziness palpitation no bowel or urine symptoms ,] Review of systems: As per history of present illness and below otherwise all systems reviewed and negative. Past medical history: As per history of present illness and as reviewed below otherwise noncontributory. Surgical history: As per history of present illness and as reviewed below otherwise noncontributory. Social history: No reported history of drug or alcohol abuse. Family history: As per history of present illness and as reviewed below otherwise noncontributory. Physical exam: HEENT: Atraumatic, normocephalic, pupils reactive, negative for conjunctival pallor or scleral icterus, mucous membranes moist, throat clear, neck supple, nontender, trachea midline. Lungs: Clear to auscultation, breath sounds equal bilaterally, chest nontender.DuoNeb and Solu-Medrol prior there was slight end expiratory wheeze Heart: S1S2, regular, negative for clicks, rubs, or JVD. Abdomen: Soft, nondistended, nontender. Negative for masses or hepatosplenomegaly. Negative for costovertebral tenderness. Pelvis: Stable nontender. Genitourinary: Deferred. Rectal: Deferred. Extremities: Atraumatic, negative for cords or calf pain. Neurovascular unremarkable. Neuro: Awake, alert, oriented. Cranial nerves II through XII unremarkable. Cerebellum unremarkable. Motor and sensory unremarkable throughout. Exam nonfocal. Diagnostics: [[facility] CMP troponin UA EKG chest x-ray ] Therapeutics: [Saline DuoNeb Solu-Medrol IV] Patient will use his albuterol nebs 4 times daily for a week Prednisone 20 mg daily for 5 days tinea current medications Return if symptoms persist or worsen Patient was offered observation admission however he refused prefers to treat at home Impression: [Short of breath]-resolved COPD exacerbation Chronic history of baseline Definitive disposition and diagnosis as appropriate pending reevaluation and review of above. Left Shoulder Pain Score (Numeric/FACES): 4 - Related Data Allergies Allergy/AdvReac Type Severity Reaction Status Date / Time No Known Allergies Allergy Verified 02/18/19 09:55 Home Meds: Home Meds Aspirin 81 mg PO DAILY 01/08/19 [History] Dimethyl Fumarate [Tecfidera] 240 mg PO BID 01/08/19 [History] Escitalopram [Lexapro] 20 mg PO DAILY 01/08/19 [History] Gabapentin [Neurontin] 800 mg PO BID 01/08/19 [History] Lisinopril 10 mg PO DAILY 01/08/19 [History] Omeprazole 40 mg PO DAILY 01/08/19 [History] Ranolazine [Ranexa] 1,000 mg PO BID 01/08/19 [History] atorvaSTATin [Lipitor] 40 mg PO DAILY 01/08/19 [History] levETIRAcetam [Keppra] 500 mg PO BID 01/08/19 [History] metFORMIN [Glucophage XR] 1,000 mg PO BIDMEALS 01/08/19 [History] Multivit with Iron,Minerals [Spectravite Senior] 1 tab PO DAILY 01/24/19 [ History] Fluticasone/Umeclidin/Vilanter [Trelegy Ellipta 100-62.5-25 MCG] 1 puff INH DAILY 02/18/19 [History] Past Medical History HEENT History: Reports: Impaired Vision Other HEENT History: glasses Cardiovascular History: Reports: High Cholesterol, Hypertension, Pulmonary Hypertension Respiratory History: Reports: COPD Musculoskeletal History: Reports: Back Pain, Chronic, Neck Pain, Chronic Neurological History: Reports: MS, Neuropathy, Diabetic Psychiatric History: Reports: Anxiety, Depression Endocrine/Metabolic History: Reports: Diabetes, Type II - Infectious Disease History Infectious Disease History: Reports: None - Past Surgical History HEENT Surgical History: Reports: Adenoidectomy, Tonsillectomy Male Surgical History: Reports: Circumcision Neurological Surgical History: Reports: Spinal Fusion Other Neurological Surgeries/Procedures: C5-C6 Social & Family History - Family History Family Medical History: Noncontributory - Caffeine Use Caffeine Use: Reports: Soda ED ROS GENERAL - Review of Systems Review Of Systems: See Below ED EXAM, GENERAL - Physical Exam Exam: See Below Course - Vital Signs Last Recorded V/S: Last Vital Signs Temp 97.2 F 02/18/19 09:40 Pulse 66 02/18/19 09:40 Resp 22 H 02/18/19 09:40 BP 130/86 02/18/19 09:40 Pulse Ox 97 02/18/19 09:40 - Orders/Labs/Meds Orders: Active Orders 24 hr Category Date Time Status EKG Documentation Completion [RC] STAT Care 02/18/19 09:47 Active RT Aerosol Therapy [RC] ASDIRECTED Care 02/18/19 09:46 Active UA RFX STONEY AND CULT IF INDIC [URIN] Stat Lab 02/18/19 09:40 Ordered Nitroglycerin [Nitrostat] Med 02/18/19 09:40 Active 0.4 mg SL Q5M PRN Sodium Chloride 0.9% [Normal Saline] 1,000 ml Med 02/18/19 09:45 Active IV STAT Medication Orders Sodium Chloride (Normal Saline) 1,000 mls @ 125 mls/hr IV STAT VITALIY Last Admin: 02/18/19 09:48 Dose: 125 mls/hr Nitroglycerin (Nitrostat) 0.4 mg SL Q5M PRN PRN Reason: Chest Pain Labs: Laboratory Tests 02/18/19 02/18/19 02/18/19 Range/Units 09:35 09:35 09:35 WBC 6.04 (4.0-11.0) K/uL RBC 4.73 (4.50-5.90) M/uL Hgb 14.8 (13.0-17.0) g/dL Hct 44.3 (38.0-50.0) % MCV 93.7 (80.0-98.0) fL MCH 31.3 (27.0-32.0) pg MCHC 33.4 (31.0-37.0) g/dL RDW Std Deviation 43.3 (28.0-62.0) fl RDW Coeff of [place] 13 (11.0-15.0) % Plt Count 342 (150-400) K/uL MPV 9.40 (7.40-12.00) fL Neut % (Auto) 61.7 (48.0-80.0) % Lymph % (Auto) 14.1 L (16.0-40.0) % [place] % (Auto) 8.8 (0.0-15.0) % Eos % (Auto) 15.1 H (0.0-7.0) % Baso % (Auto) 0.3 (0.0-1.5) % Neut # (Auto) 3.7 (1.4-5.7) K/uL Lymph # (Auto) 0.9 (0.6-2.4) K/uL [place] # (Auto) 0.5 (0.0-0.8) K/uL Eos # (Auto) 0.9 H (0.0-0.7) K/uL Baso # (Auto) 0.0 (0.0-0.1) K/uL Nucleated RBC % 0.0 /100WBC Nucleated RBCs # 0 K/uL Sodium 140 (136-148) mmol/L Potassium 4.2 (3.5-5.1) mmol/L Chloride 101 (98-107) mmol/L Carbon Dioxide 27.6 (21.0-32.0) mmol/L BUN 13 (7.0-18.0) mg/dL Creatinine 1.3 (0.8-1.3) mg/dL Est Cr Clr Drug Dosing 62.15 mL/min Estimated GFR (MDRD) 58.0 ml/min Glucose 133 H (74-106) mg/dL Calcium 9.1 (8.5-10.1) mg/dL Total Bilirubin 0.4 (0.2-1.0) mg/dL AST 28 (15-37) IU/L ALT 59 (14-63) IU/L Alkaline Phosphatase 63 (46-116) U/L Troponin I < 0.050 (0.000-0.056) ng/mL B-Natriuretic Peptide 3 (<100) PG/ML Total Protein 7.4 (6.4-8.2) g/dL Albumin 4.1 (3.4-5.0) g/dL Globulin 3.3 (2.6-4.0) g/dL Albumin/Globulin Ratio 1.2 (0.9-1.6) Lipase 143 (73-393) U/L Meds: Medications Generic Name Dose Route Start Last Admin Trade Name Freq PRN Reason Stop Dose Admin Sodium Chloride 1,000 mls @ 125 mls/hr 02/18/19 09:45 02/18/19 09:48 Normal Saline IV 125 mls/hr STAT VITALIY Administration Nitroglycerin 0.4 mg 02/18/19 09:40 Nitrostat SL Q5M PRN Chest Pain Discontinued Medications Generic Name Dose Route Start Last Admin Trade Name Freq PRN Reason Stop Dose Admin Albuterol/Ipratropium 3 ml 02/18/19 09:46 02/18/19 09:58 Duoneb 3.0-0.5 Mg/3 Ml NEB 02/18/19 09:47 3 ml ONETIME ONE Administration Aspirin 324 mg 02/18/19 09:40 02/18/19 09:49 Aspirin PO 02/18/19 09:41 324 mg ONETIME ONE Administration Methylprednisolone Sodium Succinate 125 mg 02/18/19 09:46 02/18/19 09:52 Solu-Medrol IVPUSH 02/18/19 09:47 125 mg ONETIME ONE Administration Departure - Departure Time of Disposition: 10:54 Disposition: Home, Self-Care 01 Condition: Good Clinical Impression: COPD exacerbation - Discharge Information Additional Instructions: Occasion as prescribed Continue current home medications Nebs 4 times daily as discussed reTurn to er if symptoms persist or worsen or if new concerning symptoms develop [address] [address] The following information is given to patients seen in the emergency department who are being discharged to home. This information is to outline your options for follow-up care. We provide all patients seen in our emergency department with a follow-up referral. The need for follow-up, as well as the timing and circumstances, are variable depending upon the specifics of your emergency department visit. If you don't have a primary care physician on staff, we will provide you with a referral. We always advise you to contact your personal physician following an emergency department visit to inform them of the circumstance of the visit and for follow-up with them and/or the need for any referrals to a consulting specialist. The emergency department will also refer you to a specialist when appropriate. This referral assures that you have the opportunity for follow-up care with a specialist. All of these measure are taken in an effort to provide you with optimal care, which includes your follow-up. Under all circumstances we always encourage you to contact your private physician who remains a resource for coordinating your care. When calling for follow-up care, please make the office aware that this follow-up is from your recent emergency room visit. If for any reason you are refused follow-up, please contact the [facility] emergency department at and asked to speak to the emergency department charge nurse. - My Orders Last 24 Hours: My Active Orders 02/18/19 09:40 UA RFX STONEY AND CULT IF INDIC [URIN] Stat Nitroglycerin [Nitrostat] 0.4 mg SL Q5M PRN 02/18/19 09:45 Sodium Chloride 0.9% [Normal Saline] 1,000 ml IV STAT 02/18/19 09:46 RT Aerosol Therapy [RC] ASDIRECTED 02/18/19 09:47 EKG Documentation Completion [RC] STAT - Assessment/Plan Last 24 Hours: My Active Orders 02/18/19 09:40 UA RFX STONEY AND CULT IF INDIC [URIN] Stat Nitroglycerin [Nitrostat] 0.4 mg SL Q5M PRN 02/18/19 09:45 Sodium Chloride 0.9% [Normal Saline] 1,000 ml IV STAT 02/18/19 09:46 RT Aerosol Therapy [RC] ASDIRECTED 02/18/19 09:47 EKG Documentation Completion [RC] STAT
[2019-02-18] MEDS ORDERED: Sodium Chloride 0.9% 1,000 ML IV SCH (09:45)
[2019-02-18] MEDS ORDERED: Albuterol/Ipratropium 3.0-0.5 MG/3 ML Neb Soln NEB ONE (09:46)
[2019-02-18] MEDS ORDERED: methylPREDNISolone Sodium Succinate 125 MG/2 ML SDV IVPUSH ONE (09:46)
--- NOTE | 2019-02-18 10:10 | CR ---
INDICATION: SOB TECHNIQUE: Chest 1 view. COMPARISON: 01/08/19 FINDINGS: Cardiovascular and mediastinum: Heart size and vasculature are normal in caliber and appearance. Mediastinum is within normal limits. Lungs and pleural space: Lungs are clear. No sign of infiltrate or mass. No sign of pleural effusion. No pneumothorax. Bones and soft tissues: No significant findings. IMPRESSION: Unremarkable chest. Dictated by: Jose J James MD @ 02/18/2019 10:08:44 (Electronically Signed)
[2019-02-18 10:25] LABS: BLOOD UREA NITROGEN,BUN 13 mg/dL (7.0-18.0); CARBON DIOXIDE,CO2 27.6 mmol/L (21.0-32.0); CHLORIDE,CL 101 mmol/L (98-107); GLUCOSE RANDOM 133 mg/dL (74-106); LIPASE 143 U/L (73-393); POTASSIUM,K 4.2 mmol/L (3.5-5.1); SODIUM,NA 140 mmol/L (136-148)
== END 2019-02-18 11:32 | disposition home or self-care (01) ==
LOC: MW.ED 09:36
DX: J44.1 Chronic obstructive pulmonary disease with (acute) exacerbation (principal); I10 Essential (primary) hypertension; F32.9 Major depressive disorder, single episode, unspecified; F41.9 Anxiety disorder, unspecified; E11.40 Type 2 diabetes mellitus with diabetic neuropathy, unspecified; E78.00 Pure hypercholesterolemia, unspecified; Z79.82 Long term (current) use of aspirin; Z79.899 Other long term (current) drug therapy; Z98.890 Other specified postprocedural states; Z79.84 Long term (current) use of oral hypoglycemic drugs
CPT/HCPCS: 36415; 71045; 80053; 83690; 83880; 84484; 85025; 93005; 94640; 96361; 96374; 99285; A9270; J2930; J7040; J7620-GY

== ENCOUNTER 2019-02-25 16:40 | Emergency (ER) | payer MEDICAID ==
[2019-02-25] MEDS ORDERED: Albuterol/Ipratropium 3.0-0.5 MG/3 ML Neb Soln NEB ONE (17:11)
--- NOTE | 2019-02-25 17:35 | CR ---
INDICATION: Cough COMPARISON: 02/18/2019 FINDINGS: PA and lateral views of the chest were obtained. The lungs remain clear. No focal or diffuse infiltrates are present. The heart remains normal in size. The mediastinum is normal in appearance. Again seen is a metallic plate from anterior cervical fusion. The osseous structures otherwise remain in appearance for the patient`s age. IMPRESSION: No active disease seen in the chest. Dictated by Aaron Cavanaugh MD @ Feb 25 2019 5:31PM Signed by Dr. Aaron Cavanaugh @ Feb 25 2019 5:33PM
--- NOTE | 2019-02-25 17:48 | EDM.PDOC ---
ED HPI GENERAL MEDICAL PROBLEM - General Chief Complaint: ENT Problem Stated Complaint: flu like symptoms Time Seen by Provider: 02/25/19 16:53 Source of Information: Reports: Patient History Limitations: Reports: No Limitations - History of Present Illness INITIAL COMMENTS - FREE TEXT/NARRATIVE: HISTORY AND PHYSICAL: History of present illness: Patient is a 53-year-old male presents to the ED today with concern of nasal congestion/runny nose, sore throat, and cough. Patient was seen in the ED on for shortness of breath and COPD exacerbation in which she has been on prednisone for 5 days. Patient states his last dose of prednisone was yesterday and starting last night he started getting nasal congestion, sore throat, and cough. Patient states he does not feel short of breath. Patient states he does not have any nebulizers at home but does use inhalers and just recently picked up and inhaler since insurance has kicked in an pain for it. Patient denies any other symptoms or concerns. Patient denies fever, chills, chest pain, shortness of breath. Denies headache, neck stiff ness, change in vision, syncope, or near syncope. Denies nausea, vomiting, abdominal pain, diarrhea, constipation, or dysuria. Has not noted any blood in urine or stool. Patient has been eating and drinking appropriately. Review of systems: As per history of present illness and below otherwise all systems reviewed and negative. Past medical history: As per history of present illness and as reviewed below otherwise noncontributory. Surgical history: As per history of present illness and as reviewed below otherwise noncontributory. Social history: See social history for further information Family history: As per history of present illness and as reviewed below otherwise noncontributory. Physical exam: General: Patient is alert, oriented, and in no acute distress. Patient sitting comfortably on exam table. HEENT: Atraumatic, normocephalic, pupils equal and reactive bilaterally, negative for conjunctival pallor or scleral icterus, mucous membranes moist, TMs normal bilaterally, throat mildly erythematous with post nasal drip, neck supple, nontender, trachea midline. No drooling or trismus noted. No meningeal signs. No hot potato voice noted. Bilateral nasal congestion with clear nasal drainage. Lungs: Lung sounds are slightly diminished with mild wheezing to lung bases to auscultation, breath sounds equal bilaterally, chest nontender. Dry cough on exam. Heart: S1S2, regular rate and rhythm without overt murmur Abdomen: Soft, nondistended, nontender. Negative for masses or hepatosplenomegaly. Negative for costovertebral tenderness. Pelvis: Stable nontender. Genitourinary: Deferred. Rectal: Deferred. Skin: Intact, warm, dry. No lesions or rashes noted. Extremities: Atraumatic, negative for cords or calf pain. Neurovascular unremarkable. Neuro: Awake, alert, oriented. Cranial nerves II through XII unremarkable. Cerebellum unremarkable. Motor and sensory unremarkable throughout. Exam nonfocal. Notes: Dr. Tillman directly involved in patient care. Patient is requesting refill for one of his MS medications as he ran out a few days ago. Patient states he did see primary care, Dr. Heard who told patient that he was not comfortable prescribing this medication and this needs to be prescribed solely by a neurologist. I also discussed with patient that he needs to follow up with neurology for refill of this medication. Discussed the importance for follow-up with a primary care provider and neurology. Voices understanding and is agreeable to plan of care. Denies any further questions or concerns at this time. Diagnostics: CBC, CMP, UA, EKG, chest x-ray, influenza, strep Therapeutics: Duoneb Prescription: Duoneb Impression: Cough Nasal congestion H/O COPD Plan: 1. Take medication as prescribed. Use her other prescriptions and inhalers as prescribed. 2. Follow-up with your primary care provider and the neurologist as scheduled and as discussed. Return to the ED as needed and as discussed. Definitive disposition and diagnosis as appropriate pending reevaluation and review of above. Throat Pain Score (Numeric/FACES): 7 - Related Data Allergies Allergy/AdvReac Type Severity Reaction Status Date / Time No Known Allergies Allergy Verified 02/25/19 16:56 Home Meds: Home Meds Aspirin 81 mg PO DAILY 01/08/19 [History] Dimethyl Fumarate [Tecfidera] 240 mg PO BID 01/08/19 [History] Escitalopram [Lexapro] 20 mg PO DAILY 01/08/19 [History] Gabapentin [Neurontin] 800 mg PO BID 01/08/19 [History] Lisinopril 10 mg PO DAILY 01/08/19 [History] Omeprazole 40 mg PO DAILY 01/08/19 [History] Ranolazine [Ranexa] 1,000 mg PO BID 01/08/19 [History] atorvaSTATin [Lipitor] 40 mg PO DAILY 01/08/19 [History] levETIRAcetam [Keppra] 500 mg PO BID 01/08/19 [History] metFORMIN [Glucophage XR] 1,000 mg PO BIDMEALS 01/08/19 [History] Multivit with Iron,Minerals [Spectravite Senior] 1 tab PO DAILY 01/24/19 [ History] Fluticasone/Umeclidin/Vilanter [Trelegy Ellipta 100-62.5-25 MCG] 1 puff INH DAILY 02/18/19 [History] Past Medical History HEENT History: Reports: Impaired Vision Other HEENT History: glasses Cardiovascular History: Reports: High Cholesterol, Hypertension, Pulmonary Hypertension Respiratory History: Reports: COPD Gastrointestinal History: Reports: None Genitourinary History: Reports: None Musculoskeletal History: Reports: Back Pain, Chronic, Neck Pain, Chronic Neurological History: Reports: MS, Neuropathy, Diabetic Psychiatric History: Reports: Anxiety, Depression Endocrine/Metabolic History: Reports: Diabetes, Type II Hematologic History: Reports: None Immunologic History: Reports: None Oncologic (Cancer) History: Reports: None Dermatologic History: Reports: None - Infectious Disease History Infectious Disease History: Reports: None - Past Surgical History Head Surgeries/Procedures: Reports: None HEENT Surgical History: Reports: Adenoidectomy, Tonsillectomy Male Surgical History: Reports: Circumcision Neurological Surgical History: Reports: Spinal Fusion Other Neurological Surgeries/Procedures: C5-C6 Social & Family History - Family History Family Medical History: Noncontributory - Tobacco Use Smoking Status *Q: Former Smoker Used Tobacco, but Quit: Yes Month/Year Tobacco Last Used: 1999 - Caffeine Use Caffeine Use: Reports: Soda - Recreational Drug Use Recreational Drug Use: No ED ROS GENERAL - Review of Systems Review Of Systems: ROS reveals no pertinent complaints other than HPI. ED EXAM, GENERAL - Physical Exam Exam: See Below (See dictation) Course - Vital Signs Last Recorded V/S: Last Vital Signs Temp 97.0 F 02/25/19 16:54 Pulse 74 02/25/19 16:54 Resp 16 02/25/19 16:54 BP 127/75 02/25/19 16:54 Pulse Ox 95 02/25/19 16:54 - Orders/Labs/Meds Orders: Active Orders 24 hr Category Date Time Status EKG Documentation Completion [RC] STAT Care 02/25/19 17:10 Active RT Aerosol Therapy [RC] ASDIRECTED Care 02/25/19 17:11 Active CULTURE STREP A CONFIRMATION [RM] Stat Lab 02/25/19 17:02 Results STREP SCRN A RAPID W CULT CONF [RM] Stat Lab 02/25/19 17:02 Results UA RFX STONEY AND CULT IF INDIC [URIN] Stat Lab 02/25/19 17:10 Ordered Labs: Laboratory Tests 02/25/19 02/25/19 Range/Units 17:34 17:34 WBC 10.40 (4.0-11.0) K/uL RBC 4.63 (4.50-5.90) M/uL Hgb 14.5 (13.0-17.0) g/dL Hct 43.2 (38.0-50.0) % MCV 93.3 (80.0-98.0) fL MCH 31.3 (27.0-32.0) pg MCHC 33.6 (31.0-37.0) g/dL RDW Std Deviation 43.8 (28.0-62.0) fl RDW Coeff of Carol 13 (11.0-15.0) % Plt Count 315 (150-400) K/uL MPV 9.10 (7.40-12.00) fL Neut % (Auto) 72.1 (48.0-80.0) % Lymph % (Auto) 13.8 L (16.0-40.0) % Amelia % (Auto) 10.1 (0.0-15.0) % Eos % (Auto) 3.6 (0.0-7.0) % Baso % (Auto) 0.4 (0.0-1.5) % Neut # (Auto) 7.5 H (1.4-5.7) K/uL Lymph # (Auto) 1.4 (0.6-2.4) K/uL Amelia # (Auto) 1.1 H (0.0-0.8) K/uL Eos # (Auto) 0.4 (0.0-0.7) K/uL Baso # (Auto) 0.0 (0.0-0.1) K/uL Nucleated RBC % 0.0 /100WBC Nucleated RBCs # 0 K/uL Sodium 140 (136-148) mmol/L Potassium 3.5 (3.5-5.1) mmol/L Chloride 103 (98-107) mmol/L Carbon Dioxide 23.3 (21.0-32.0) mmol/L BUN 14 (7.0-18.0) mg/dL Creatinine 1.0 (0.8-1.3) mg/dL Est Cr Clr Drug Dosing TNP Estimated GFR (MDRD) > 60.0 ml/min Glucose 119 H (74-106) mg/dL Calcium 8.9 (8.5-10.1) mg/dL Total Bilirubin 0.3 (0.2-1.0) mg/dL AST 21 (15-37) IU/L ALT 48 (14-63) IU/L Alkaline Phosphatase 56 (46-116) U/L Total Protein 7.3 (6.4-8.2) g/dL Albumin 4.1 (3.4-5.0) g/dL Globulin 3.2 (2.6-4.0) g/dL Albumin/Globulin Ratio 1.3 (0.9-1.6) Meds: Medications Discontinued Medications Generic Name Dose Route Start Last Admin Trade Name Freq PRN Reason Stop Dose Admin Albuterol/Ipratropium 3 ml 02/25/19 17:11 02/25/19 17:20 Duoneb 3.0-0.5 Mg/3 Ml NEB 02/25/19 17:12 3 ml ONETIME ONE Administration Departure - Departure Time of Disposition: 18:35 Disposition: Home, Self-Care 01 Clinical Impression: Cough, Nasal congestion, History of COPD - Discharge Information Referrals: Venkatesh Last MD [Primary Care Provider] - Forms: ED Department Discharge Additional Instructions: The following information is given to patients seen in the emergency department who are being discharged to home. This information is to outline your options for follow-up care. We provide all patients seen in our emergency department with a follow-up referral. The need for follow-up, as well as the timing and circumstances, are variable depending upon the specifics of your emergency department visit. If you don't have a primary care physician on staff, we will provide you with a referral. We always advise you to contact your personal physician following an emergency department visit to inform them of the circumstance of the visit and for follow-up with them and/or the need for any referrals to a consulting specialist. The emergency department will also refer you to a specialist when appropriate. This referral assures that you have the opportunity for follow-up care with a specialist. All of these measure are taken in an effort to provide you with optimal care, which includes your follow-up. Under all circumstances we always encourage you to contact your private physician who remains a resource for coordinating your care. When calling for follow-up care, please make the office aware that this follow-up is from your recent emergency room visit. If for any reason you are refused follow-up, please contact the [facility] at and asked to speak to the emergency department charge nurse. [facility] [address] [place] [id number] [facility] [address] [place] [id number] 1. Take medication as prescribed. Use her other prescriptions and inhalers as prescribed. 2. Follow-up with your primary care provider and the neurologist as scheduled and as discussed. Return to the ED as needed and as discussed. - My Orders Last 24 Hours: My Active Orders 02/25/19 17:02 CULTURE STREP A CONFIRMATION [RM] Stat STREP SCRN A RAPID W CULT CONF [RM] Stat 02/25/19 17:10 EKG Documentation Completion [RC] STAT UA RFX STONEY AND CULT IF INDIC [URIN] Stat 02/25/19 17:11 RT Aerosol Therapy [RC] ASDIRECTED - Assessment/Plan Last 24 Hours: My Active Orders 02/25/19 17:02 CULTURE STREP A CONFIRMATION [RM] Stat STREP SCRN A RAPID W CULT CONF [RM] Stat 02/25/19 17:10 EKG Documentation Completion [RC] STAT UA RFX STONEY AND CULT IF INDIC [URIN] Stat 02/25/19 17:11 RT Aerosol Therapy [RC] ASDIRECTED
[2019-02-25 18:06] LABS: BLOOD UREA NITROGEN,BUN 14 mg/dL (7.0-18.0); CARBON DIOXIDE,CO2 23.3 mmol/L (21.0-32.0); CHLORIDE,CL 103 mmol/L (98-107); GLUCOSE RANDOM 119 mg/dL (74-106); POTASSIUM,K 3.5 mmol/L (3.5-5.1); SODIUM,NA 140 mmol/L (136-148)
== END 2019-02-25 18:45 | disposition home or self-care (01) ==
LOC: MW.ED 16:40
DX: R05 Cough (principal); J02.9 Acute pharyngitis, unspecified; R09.81 Nasal congestion; J44.9 Chronic obstructive pulmonary disease, unspecified; I10 Essential (primary) hypertension; E11.40 Type 2 diabetes mellitus with diabetic neuropathy, unspecified; E78.00 Pure hypercholesterolemia, unspecified; Z79.899 Other long term (current) drug therapy; Z79.84 Long term (current) use of oral hypoglycemic drugs; Z87.891 Personal history of nicotine dependence; Z79.51 Long term (current) use of inhaled steroids; Z79.82 Long term (current) use of aspirin
CPT/HCPCS: 36415; 71046; 71046-26; 80053; 85025; 87081; 87804; 87880-QW; 93005; 94640; 99284-25; J7620-GY

== ENCOUNTER 2019-03-02 18:25 | Observation (INO) | payer MEDICAID, OTHER ==
[2019-03-02] MEDS ORDERED: Albuterol/Ipratropium 3.0-0.5 MG/3 ML Neb Soln NEB ONE (18:35)
--- NOTE | 2019-03-02 18:39 | EDM.PDOC ---
ED HPI GENERAL MEDICAL PROBLEM - General Chief Complaint: Respiratory Problem Stated Complaint: SOB FEVER Time Seen by Provider: 03/02/19 18:28 Source of Information: Reports: Patient History Limitations: Reports: No Limitations - History of Present Illness INITIAL COMMENTS - FREE TEXT/NARRATIVE: HISTORY AND PHYSICAL: History of present illness: Patient is a 53-year-old male who presents to the emergency room with complaints of shortness of breath, cough, subjective fever and chills and body aches. He has been seen in our emergency room on 02/18 and 02/25 for similar symptoms. He had been put on a prednisone taper (02/18), finished this last week. Was then seen again and prescribed DuoNeb (02/25). He states his symptoms have not improved and in fact feels worse. He has not used the Duo Neb in the past 24 hours. States today he feels weak and generally unwell. He is accompanied by his and child. Patient denies any headache, change in vision, syncope or near syncope. Denies any chest pain, back pain, abdominal pain, nausea, vomiting, diarrhea, constipation or dysuria. Has not noted any blood in urine or stool. Patient has been eating and drinking appropriately. Review of systems: As per history of present illness and below otherwise all systems reviewed and negative. Past medical history: As per history of present illness and as reviewed below otherwise noncontributory. Surgical history: As per history of present illness and as reviewed below otherwise noncontributory. Social history: See social history for further information Family history: As per history of present illness and as reviewed below otherwise noncontributory. Physical exam: General: Well-developed and well-nourished 53-year-old male. Alert and oriented. Nontoxic appearing and in no acute distress. HEENT: Atraumatic, normocephalic, pupils equal and reactive bilaterally, negative for conjunctival pallor or scleral icterus, mucous membranes moist, TMs normal bilaterally, throat clear, neck supple, nontender, trachea midline. No drooling or trismus noted. No meningeal signs. No hot potato voice noted. Lungs: Slightly diminished bases bilaterally, breath sounds equal bilaterally, chest nontender. Dry nonproductive cough noted. Heart: S1S2, regular rate and rhythm without overt murmur Abdomen: Soft, nondistended, obese, nontender. Negative for masses or hepatosplenomegaly. Negative for costovertebral tenderness. Pelvis: Stable nontender. Skin: Intact, warm, dry. No lesions or rashes noted. Extremities: Atraumatic, moves all extremities per self without difficulty or deficits, negative for cords or calf pain. No pitting edema noted. Neurovascular unremarkable. Neuro: Awake, alert, oriented. Cranial nerves II through XII unremarkable. Cerebellum unremarkable. Motor and sensory unremarkable throughout. Exam nonfocal. Notes: The physical examination is within normal limits with the exception of a dry cough. Patient did ambulate into the emergency room without any difficulty or deficits. I do not note any weakness and his vital signs are stable. Neurologically intact. He did recently have labs done on his last ER visit, he is agreeable to repeat labs. This time I do not feel he needs an IV or fluids as he does not have any nausea, vomiting or diarrhea. He states he has been eating and drinking appropriately. Initially a CBC, CMP, influenza and chest x-ray were done. These results are benign. Patient has been up to the bathroom and ambulatory without assistance. He states he does feel weak and is concerned that he needs to be admitted. I informed the patient of his stable vital signs along with the normal lab work at this time and informed him we could do some additional diagnostics, which he declines. Patient's states that she feels this is related to his MS as he has been out of these medications for several weeks. She states that they had a prescription for his MS medications but did not get them filled as their insurance would not cover this medication unless it was prescribed by a neurologist. I did offer to have these medications prescribed while here in the emergency room, the declines. She states unless I am able to get a prior- authorization and have a neurologist cosign that her insurance will not cover this. I asked if they were able to get a hold of his neurologist in [place], as they do have an appointment at the end of the month with him (and are moving back to at the end of the month). She states that they cannot prescribed as it has been too long since his last visit and he needs to reestablish care with them before they will refill any medications. Patient is requesting to be admitted although does not want any further of a workup. I informed them without any additional diagnostics and his current physical examination/labs - I do not have an admitable diagnosis. Dr Griffith was directly involved in this case. Our nursing supervisor electronic coils spoke with the patient and family, they are now willing to additional labs. The states that they do not feel comfortable being discharged to home as they live on a second floor apartment. She states "we'll never make it up stairs" and will likely be calling an ambulance to return to our emergency room. Patient does have an elevated lactate, otherwise unremarkable. Will give IV fluids. Due to the patient and family being very adamant about admission, I did speak with Dr. Whaley. Dr. Whaley is agreeable to admitting him for observation. Diagnostics: CBC, CMP, Influenza, CXR, lactic, ua, monoscreen Therapeutics: Hernesto Ordoñez Impression: Weakness History of MS Medication noncompliance Elevated lactate Plan: Observation admission to Med/Surg. Definitive disposition and diagnosis as appropriate pending reevaluation and review of above. Generalized Pain Score (Numeric/FACES): 7 - Related Data Allergies Allergy/AdvReac Type Severity Reaction Status Date / Time No Known Allergies Allergy Verified 03/02/19 18:28 Home Meds: Home Meds Aspirin 81 mg PO DAILY 01/08/19 [History] Dimethyl Fumarate [Tecfidera] 240 mg PO BID 01/08/19 [History] Escitalopram [Lexapro] 20 mg PO DAILY 01/08/19 [History] Gabapentin [Neurontin] 800 mg PO BID 01/08/19 [History] Lisinopril 10 mg PO DAILY 01/08/19 [History] Omeprazole 40 mg PO DAILY 01/08/19 [History] Ranolazine [Ranexa] 1,000 mg PO BID 01/08/19 [History] atorvaSTATin [Lipitor] 40 mg PO DAILY 01/08/19 [History] levETIRAcetam [Keppra] 500 mg PO BID 01/08/19 [History] metFORMIN [Glucophage XR] 1,000 mg PO BIDMEALS 01/08/19 [History] Multivit with Iron,Minerals [Spectravite Senior] 1 tab PO DAILY 01/24/19 [ History] Fluticasone/Umeclidin/Vilanter [Trelegy Ellipta 100-62.5-25 MCG] 1 puff INH DAILY 02/18/19 [History] Albuterol/Ipratropium [DuoNeb 3.0-0.5 MG/3 ML] 3 ml .XX TID PRN #20 neb [Rx] Past Medical History HEENT History: Reports: Impaired Vision Other HEENT History: glasses Cardiovascular History: Reports: High Cholesterol, Hypertension, Pulmonary Hypertension Respiratory History: Reports: COPD Gastrointestinal History: Reports: None Genitourinary History: Reports: None Musculoskeletal History: Reports: Back Pain, Chronic, Neck Pain, Chronic Neurological History: Reports: MS, Neuropathy, Diabetic Psychiatric History: Reports: Anxiety, Depression Endocrine/Metabolic History: Reports: Diabetes, Type II Hematologic History: Reports: None Immunologic History: Reports: None Oncologic (Cancer) History: Reports: None Dermatologic History: Reports: None - Infectious Disease History Infectious Disease History: Reports: None - Past Surgical History Head Surgeries/Procedures: Reports: None HEENT Surgical History: Reports: Adenoidectomy, Tonsillectomy Male Surgical History: Reports: Circumcision Neurological Surgical History: Reports: Spinal Fusion Other Neurological Surgeries/Procedures: C5-C6 Social & Family History - Family History Family Medical History: Noncontributory - Tobacco Use Smoking Status *Q: Never Smoker - Caffeine Use Caffeine Use: Reports: Soda - Recreational Drug Use Recreational Drug Use: No ED ROS GENERAL - Review of Systems Review Of Systems: ROS reveals no pertinent complaints other than HPI. ED EXAM, GENERAL - Physical Exam Exam: See Below (See dictation) Course - Vital Signs Last Recorded V/S: Last Vital Signs Temp 97.0 F 03/02/19 18:26 Pulse 77 03/02/19 18:26 Resp 20 03/02/19 18:26 BP 151/80 H 03/02/19 18:26 Pulse Ox 98 03/02/19 18:26 - Orders/Labs/Meds Orders: Active Orders 24 hr Category Date Time Status Admission Status [Patient Status] [ADT] Stat ADT 03/02/19 20:32 Active RT Aerosol Therapy [RC] ASDIRECTED Care 03/02/19 18:35 Active UA RFX STONEY AND CULT IF INDIC [URIN] Stat Lab 03/02/19 20:24 Ordered Sodium Chloride 0.9% [Normal Saline] 1,000 ml Med 03/02/19 21:32 Active IV STAT Sodium Chloride 0.9% [Saline Flush] Med 03/02/19 20:26 Active 10 ml FLUSH ASDIRECTED PRN Sodium Chloride 0.9% [Saline Flush] Med 03/02/19 20:26 Active 2.5 ml FLUSH ASDIRECTED PRN Saline Lock Insert [OM.PC] Stat Oth 03/02/19 20:26 Ordered Medication Orders Sodium Chloride (Normal Saline) 1,000 mls @ 999 mls/hr IV STAT ONE Stop: 03/02/19 22:32 Sodium Chloride (Saline Flush) 10 ml FLUSH ASDIRECTED PRN PRN Reason: Keep Vein Open Sodium Chloride (Saline Flush) 2.5 ml FLUSH ASDIRECTED PRN PRN Reason: Keep Vein Open Labs: Laboratory Tests 03/02/19 03/02/19 03/02/19 Range/Units 19:20 19:20 19:20 WBC 8.63 (4.0-11.0) K/uL RBC 4.67 (4.50-5.90) M/uL Hgb 14.7 (13.0-17.0) g/dL Hct 43.7 (38.0-50.0) % MCV 93.6 (80.0-98.0) fL MCH 31.5 (27.0-32.0) pg MCHC 33.6 (31.0-37.0) g/dL RDW Std Deviation 42.8 (28.0-62.0) fl RDW Coeff of Carol 13 (11.0-15.0) % Plt Count 296 (150-400) K/uL MPV 9.20 (7.40-12.00) fL Neut % (Auto) 63.6 (48.0-80.0) % Lymph % (Auto) 17.4 (16.0-40.0) % [place] % (Auto) 10.4 (0.0-15.0) % Eos % (Auto) 8.0 H (0.0-7.0) % Baso % (Auto) 0.6 (0.0-1.5) % Neut # (Auto) 5.5 (1.4-5.7) K/uL Lymph # (Auto) 1.5 (0.6-2.4) K/uL [place] # (Auto) 0.9 H (0.0-0.8) K/uL Eos # (Auto) 0.7 (0.0-0.7) K/uL Baso # (Auto) 0.1 (0.0-0.1) K/uL Nucleated RBC % 0.0 /100WBC Nucleated RBCs # 0 K/uL Lactate (0.20-2.00) mmol/L Sodium 137 (136-148) mmol/L Potassium 3.6 (3.5-5.1) mmol/L Chloride 102 (98-107) mmol/L Carbon Dioxide 24.2 (21.0-32.0) mmol/L BUN 7 (7.0-18.0) mg/dL Creatinine 1.2 (0.8-1.3) mg/dL Est Cr Clr Drug Dosing 67.32 mL/min Estimated GFR (MDRD) > 60.0 ml/min Glucose 276 H (74-106) mg/dL Calcium 8.6 (8.5-10.1) mg/dL Total Bilirubin 0.3 (0.2-1.0) mg/dL AST 22 (15-37) IU/L ALT 60 (14-63) IU/L Alkaline Phosphatase 73 (46-116) U/L Total Protein 7.8 (6.4-8.2) g/dL Albumin 3.7 (3.4-5.0) g/dL Globulin 4.1 H (2.6-4.0) g/dL Albumin/Globulin Ratio 0.9 (0.9-1.6) TSH 3rd Generation (0.36-3.74) uIU/mL Monoscreen NEGATIVE (NEG) 03/02/19 03/02/19 Range/Units 19:20 20:33 WBC (4.0-11.0) K/uL RBC (4.50-5.90) M/uL Hgb (13.0-17.0) g/dL Hct (38.0-50.0) % MCV (80.0-98.0) fL MCH (27.0-32.0) pg MCHC (31.0-37.0) g/dL RDW Std Deviation (28.0-62.0) fl RDW Coeff of Carol (11.0-15.0) % Plt Count (150-400) K/uL MPV (7.40-12.00) fL Neut % (Auto) (48.0-80.0) % Lymph % (Auto) (16.0-40.0) % [place] % (Auto) (0.0-15.0) % Eos % (Auto) (0.0-7.0) % Baso % (Auto) (0.0-1.5) % Neut # (Auto) (1.4-5.7) K/uL Lymph # (Auto) (0.6-2.4) K/uL [place] # (Auto) (0.0-0.8) K/uL Eos # (Auto) (0.0-0.7) K/uL Baso # (Auto) (0.0-0.1) K/uL Nucleated RBC % /100WBC Nucleated RBCs # K/uL Lactate 3.2 H (0.20-2.00) mmol/L Sodium (136-148) mmol/L Potassium (3.5-5.1) mmol/L Chloride (98-107) mmol/L Carbon Dioxide (21.0-32.0) mmol/L BUN (7.0-18.0) mg/dL Creatinine (0.8-1.3) mg/dL Est Cr Clr Drug Dosing mL/min Estimated GFR (MDRD) ml/min Glucose (74-106) mg/dL Calcium (8.5-10.1) mg/dL Total Bilirubin (0.2-1.0) mg/dL AST (15-37) IU/L ALT (14-63) IU/L Alkaline Phosphatase (46-116) U/L Total Protein (6.4-8.2) g/dL Albumin (3.4-5.0) g/dL Globulin (2.6-4.0) g/dL Albumin/Globulin Ratio (0.9-1.6) TSH 3rd Generation 0.93 (0.36-3.74) uIU/mL Monoscreen (NEG) Meds: Medications Generic Name Dose Route Start Last Admin Trade Name Freq PRN Reason Stop Dose Admin Sodium Chloride 1,000 mls @ 999 mls/hr 03/02/19 21:32 Normal Saline IV 03/02/19 22:32 STAT ONE Sodium Chloride 10 ml 03/02/19 20:26 Saline Flush FLUSH ASDIRECTED PRN Keep Vein Open Sodium Chloride 2.5 ml 03/02/19 20:26 Saline Flush FLUSH ASDIRECTED PRN Keep Vein Open Discontinued Medications Generic Name Dose Route Start Last Admin Trade Name Pascale PRN Reason Stop Dose Admin Albuterol/Ipratropium 3 ml 03/02/19 18:35 03/02/19 18:47 Duoneb 3.0-0.5 Mg/3 Ml NEB 03/02/19 18:36 3 ml ONETIME ONE Administration Departure - Departure Time of Disposition: 20:09 Disposition: Refer to Observation Clinical Impression: Weakness, History of multiple sclerosis, Noncompliance with medication regimen , Elevated lactic acid level - Discharge Information Referrals: PCP,Unknown [Primary Care Provider] - Forms: ED Department Discharge - My Orders Last 24 Hours: My Active Orders 03/02/19 18:35 RT Aerosol Therapy [RC] ASDIRECTED 03/02/19 20:24 UA RFX STONEY AND CULT IF INDIC [URIN] Stat 03/02/19 20:26 Sodium Chloride 0.9% [Saline Flush] 10 ml FLUSH ASDIRECTED PRN Sodium Chloride 0.9% [Saline Flush] 2.5 ml FLUSH ASDIRECTED PRN Saline Lock Insert [OM.PC] Stat 03/02/19 20:32 Admission Status [Patient Status] [ADT] Stat 03/02/19 21:32 Sodium Chloride 0.9% [Normal Saline] 1,000 ml IV STAT - Assessment/Plan Last 24 Hours: My Active Orders 03/02/19 18:35 RT Aerosol Therapy [RC] ASDIRECTED 03/02/19 20:24 UA RFX STONEY AND CULT IF INDIC [URIN] Stat 03/02/19 20:26 Sodium Chloride 0.9% [Saline Flush] 10 ml FLUSH ASDIRECTED PRN Sodium Chloride 0.9% [Saline Flush] 2.5 ml FLUSH ASDIRECTED PRN Saline Lock Insert [OM.PC] Stat 03/02/19 20:32 Admission Status [Patient Status] [ADT] Stat 03/02/19 21:32 Sodium Chloride 0.9% [Normal Saline] 1,000 ml IV STAT
--- NOTE | 2019-03-02 19:46 | CR ---
HISTORY: Shortness of breath. TECHNIQUE: One view of the chest. COMPARISON: 02/25/2019. FINDINGS: The cardiac size and pulmonary vasculature are within normal limits. There is no lung infiltrate or pulmonary edema. No pneumothorax or pleural effusion. Prior cervical fusion. IMPRESSION: No acute cardiopulmonary disease. Dictated by Lester Palmer MD @ 03/02/2019 7:45:46 PM Dictated by: Lester Palmer MD @ 03/02/2019 19:45:50 (Electronically Signed)
[2019-03-02 19:50] LABS: BLOOD UREA NITROGEN,BUN 7 mg/dL (7.0-18.0); CARBON DIOXIDE,CO2 24.2 mmol/L (21.0-32.0); CHLORIDE,CL 102 mmol/L (98-107); GLUCOSE RANDOM 276 mg/dL (74-106); POTASSIUM,K 3.6 mmol/L (3.5-5.1); SODIUM,NA 137 mmol/L (136-148)
[2019-03-02] MEDS ORDERED: Sodium Chloride 0.9% 2.5 ML Syringe FLUSH PRN (20:26)
[2019-03-02] MEDS ORDERED: Sodium Chloride 0.9% 10 ML Syringe FLUSH PRN (20:26)
[2019-03-02] MEDS ORDERED: Sodium Chloride 0.9% 1,000 ML IV ONE (21:32)
[2019-03-02] MEDS ORDERED: Acetaminophen 325 MG Tab PO PRN (23:04)
[2019-03-02] MEDS: Sodium Chloride 0.9% 1,000 ML IV SCH (23:38)
[2019-03-02] MEDS: cefTRIAXone 1 GM in Premix Bag 1 BAG IV SCH (23:43)
[2019-03-02] MEDS: oxyCODONE 5 MG Tab PO PRN (23:51)
[2019-03-03] MEDS ORDERED: Benzonatate 100 MG Cap PO PRN (04:54)
[2019-03-03 06:47] LABS: BLOOD UREA NITROGEN,BUN 6 mg/dL (7.0-18.0); CARBON DIOXIDE,CO2 23.9 mmol/L (21.0-32.0); CHLORIDE,CL 104 mmol/L (98-107); GLUCOSE RANDOM 152 mg/dL (74-106); POTASSIUM,K 3.5 mmol/L (3.5-5.1); SODIUM,NA 141 mmol/L (136-148)
--- NOTE | 2019-03-03 06:52 | PCM.HP.2 ---
H&P History of Present Illness - General Date of Service: 03/03/19 Admit Problem/Dx: Admission Diagnosis/Problem Admission Diagnosis/Problem Weakness, fatigue, MS exacerbation, upper respiratory infection Source of Information: Patient History Limitations: Reports: No Limitations - History of Present Illness Initial Comments - Free Text/Narative: The patient is a 53-year-old gentleman who presented to the emergency department on 3 separate occasions subjective shortness of breath, cough, fevers and chills. The patient had been previously prescribed prednisone taper on January 18, 2019. The patient says that he has been feeling weak and is concerned about exacerbation of his multiple sclerosis and he has had some weakness and inability to ambulate that he does attribute to his MS. The patient says that he has had fever, chills and drenching sweats. The patient also has had a productive cough of clear sputum to accompany this. The patient also has been out of his MS medication because it is restricted to neurology. The patient also says he is going home to [place] at the end of the month. The patient has had no specific aggravating or relieving factors. Onset of Symptoms: Reports: Gradual Duration of Symptoms: Reports: Week(s): Location: Reports: Chest Severity: Moderate Improves with: Reports: None Worsens with: Reports: None Associated Symptoms: Reports: cough w sputum, Diaphoresis, Loss of Appetite Generalized Pain Score (Numeric/FACES): 7 - Related Data Allergies/Adverse Reactions: Allergies Allergy/AdvReac Type Severity Reaction Status Date / Time No Known Allergies Allergy Verified 03/02/19 23:10 Home Medications: Home Meds Aspirin 81 mg PO DAILY 01/08/19 [History] Dimethyl Fumarate [Tecfidera] 240 mg PO BID 01/08/19 [History] Escitalopram [Lexapro] 20 mg PO DAILY 01/08/19 [History] Gabapentin [Neurontin] 800 mg PO BID 01/08/19 [History] Lisinopril 10 mg PO DAILY 01/08/19 [History] Omeprazole 40 mg PO DAILY 01/08/19 [History] Ranolazine [Ranexa] 1,000 mg PO BID 01/08/19 [History] atorvaSTATin [Lipitor] 40 mg PO DAILY 01/08/19 [History] levETIRAcetam [Keppra] 500 mg PO BID 01/08/19 [History] metFORMIN [Glucophage XR] 1,000 mg PO BIDMEALS 01/08/19 [History] Multivit with Iron,Minerals [Spectravite Senior] 1 tab PO DAILY 01/24/19 [ History] Albuterol/Ipratropium [DuoNeb 3.0-0.5 MG/3 ML] 3 ml .XX TID PRN #20 neb [Rx] Umeclidinium Brm/Vilanterol Tr [Anoro Ellipta 62.5-25 MCG] 1 puff INH DAILY 11/13 [History] Past Medical History HEENT History: Reports: Impaired Vision Other HEENT History: glasses Cardiovascular History: Reports: High Cholesterol, Hypertension, Pulmonary Hypertension Respiratory History: Reports: COPD Gastrointestinal History: Reports: None Genitourinary History: Reports: None Musculoskeletal History: Reports: Back Pain, Chronic, Neck Pain, Chronic Neurological History: Reports: MS, Neuropathy, Diabetic Psychiatric History: Reports: Anxiety, Depression Endocrine/Metabolic History: Reports: Diabetes, Type II Hematologic History: Reports: None Immunologic History: Reports: None Oncologic (Cancer) History: Reports: None Dermatologic History: Reports: None - Infectious Disease History Infectious Disease History: Reports: C-Difficile - Past Surgical History Head Surgeries/Procedures: Reports: None HEENT Surgical History: Reports: Adenoidectomy, Tonsillectomy Male Surgical History: Reports: Circumcision Neurological Surgical History: Reports: Spinal Fusion Other Neurological Surgeries/Procedures: C5-C6 Social & Family History - Family History Family Medical History: Noncontributory - Tobacco Use Smoking Status *Q: Never Smoker Second Hand Smoke Exposure: No - Caffeine Use Caffeine Use: Reports: Soda - Recreational Drug Use Recreational Drug Use: No - Living Situation & Occupation Living situation: Reports: , with Family Occupation: Employed H&P Review of Systems - Review of Systems: Review Of Systems: See Below General: Reports: Fever, Chills, Weakness HEENT: Reports: No Symptoms Pulmonary: Reports: Shortness of Breath, Cough, Sputum Cardiovascular: Reports: No Symptoms Gastrointestinal: Reports: No Symptoms Genitourinary: Reports: No Symptoms Musculoskeletal: Reports: Leg Pain Skin: Reports: No Symptoms Psychiatric: Reports: No Symptoms Neurological: Reports: Numbness, Paresthesia, Tingling, Difficulty Walking, Gait Disturbance Hematologic/Lymphatic: Reports: No Symptoms Immunologic: Reports: No Symptoms Exam - Exam Exam: See Below - Vital Signs Vital Signs: Last Vital Signs Temp 37.1 C 03/03/19 04:31 Pulse 74 03/03/19 04:31 Resp 18 03/03/19 04:31 BP 130/61 03/03/19 04:31 Pulse Ox 96 03/03/19 04:31 Weight: 112.446 kg - Exam Quality Assessment: No: Supplemental Oxygen General: Alert, Oriented, Cooperative, Mild Distress HEENT: Conjunctiva Clear, EACs Clear, EOMI, Hearing Intact, Mucosa Moist & Abanda , Pupils Equal, PERRLA Neck: Supple, Trachea Midline Lungs: Normal Respiratory Effort, Rhonchi (Scattered bilaterally). No: Clear to Auscultation Cardiovascular: Regular Rate, Regular Rhythm GI/Abdominal Exam: Normal Bowel Sounds, Soft, Non-Tender, No Distention Back Exam: Normal Inspection, Full Range of Motion Extremities: Normal Inspection, No Pedal Edema Skin: Warm, Dry, Intact Neurological: Cranial Nerves Intact. No: Normal Gait Neuro Extensive - Mental Status: Alert, Oriented x3, Memory Intact Neuro Extensive - Motor, Sensory, Reflexes: CN II-XII Intact Psychiatric: Alert, Normal Affect, Normal Mood - Patient Data Lab Results Last 24 hrs: Laboratory Results - last 24 hr 03/02/19 03/02/19 03/02/19 Range/Units 19:20 19:20 19:20 WBC 8.63 (4.0-11.0) K/uL RBC 4.67 (4.50-5.90) M/uL Hgb 14.7 (13.0-17.0) g/dL Hct 43.7 (38.0-50.0) % MCV 93.6 (80.0-98.0) fL MCH 31.5 (27.0-32.0) pg MCHC 33.6 (31.0-37.0) g/dL RDW Std Deviation 42.8 (28.0-62.0) fl RDW Coeff of Carol 13 (11.0-15.0) % Plt Count 296 (150-400) K/uL MPV 9.20 (7.40-12.00) fL Neut % (Auto) 63.6 (48.0-80.0) % Lymph % (Auto) 17.4 (16.0-40.0) % [place] % (Auto) 10.4 (0.0-15.0) % Eos % (Auto) 8.0 H (0.0-7.0) % Baso % (Auto) 0.6 (0.0-1.5) % Neut # (Auto) 5.5 (1.4-5.7) K/uL Lymph # (Auto) 1.5 (0.6-2.4) K/uL [place] # (Auto) 0.9 H (0.0-0.8) K/uL Eos # (Auto) 0.7 (0.0-0.7) K/uL Baso # (Auto) 0.1 (0.0-0.1) K/uL Nucleated RBC % 0.0 /100WBC Nucleated RBCs # 0 K/uL Lactate (0.20-2.00) mmol/L Sodium 137 (136-148) mmol/L Potassium 3.6 (3.5-5.1) mmol/L Chloride 102 (98-107) mmol/L Carbon Dioxide 24.2 (21.0-32.0) mmol/L BUN 7 (7.0-18.0) mg/dL Creatinine 1.2 (0.8-1.3) mg/dL Est Cr Clr Drug Dosing 67.32 mL/min Estimated GFR (MDRD) > 60.0 ml/min Glucose 276 H (74-106) mg/dL Calcium 8.6 (8.5-10.1) mg/dL Total Bilirubin 0.3 (0.2-1.0) mg/dL AST 22 (15-37) IU/L ALT 60 (14-63) IU/L Alkaline Phosphatase 73 (46-116) U/L Total Protein 7.8 (6.4-8.2) g/dL Albumin 3.7 (3.4-5.0) g/dL Globulin 4.1 H (2.6-4.0) g/dL Albumin/Globulin Ratio 0.9 (0.9-1.6) TSH 3rd Generation (0.36-3.74) uIU/mL Urine Color Urine Appearance Urine pH (5.0-8.0) Ur Specific [place] (1.001-1.035) Urine Protein (NEGATIVE) mg/dL Urine Glucose (UA) (NEGATIVE) mg/dL Urine Ketones (NEGATIVE) mg/dL Urine Occult Blood (NEGATIVE) Urine Nitrite (NEGATIVE) Urine Bilirubin (NEGATIVE) Urine Urobilinogen (<2.0) EU/dL Ur Leukocyte Esterase (NEGATIVE) Monoscreen NEGATIVE (NEG) 03/02/19 03/02/19 03/02/19 Range/Units 19:20 20:33 21:40 WBC (4.0-11.0) K/uL RBC (4.50-5.90) M/uL Hgb (13.0-17.0) g/dL Hct (38.0-50.0) % MCV (80.0-98.0) fL MCH (27.0-32.0) pg MCHC (31.0-37.0) g/dL RDW Std Deviation (28.0-62.0) fl RDW Coeff of Carol (11.0-15.0) % Plt Count (150-400) K/uL MPV (7.40-12.00) fL Neut % (Auto) (48.0-80.0) % Lymph % (Auto) (16.0-40.0) % [place] % (Auto) (0.0-15.0) % Eos % (Auto) (0.0-7.0) % Baso % (Auto) (0.0-1.5) % Neut # (Auto) (1.4-5.7) K/uL Lymph # (Auto) (0.6-2.4) K/uL [place] # (Auto) (0.0-0.8) K/uL Eos # (Auto) (0.0-0.7) K/uL Baso # (Auto) (0.0-0.1) K/uL Nucleated RBC % /100WBC Nucleated RBCs # K/uL Lactate 3.2 H (0.20-2.00) mmol/L Sodium (136-148) mmol/L Potassium (3.5-5.1) mmol/L Chloride (98-107) mmol/L Carbon Dioxide (21.0-32.0) mmol/L BUN (7.0-18.0) mg/dL Creatinine (0.8-1.3) mg/dL Est Cr Clr Drug Dosing mL/min Estimated GFR (MDRD) ml/min Glucose (74-106) mg/dL Calcium (8.5-10.1) mg/dL Total Bilirubin (0.2-1.0) mg/dL AST (15-37) IU/L ALT (14-63) IU/L Alkaline Phosphatase (46-116) U/L Total Protein (6.4-8.2) g/dL Albumin (3.4-5.0) g/dL Globulin (2.6-4.0) g/dL Albumin/Globulin Ratio (0.9-1.6) TSH 3rd Generation 0.93 (0.36-3.74) uIU/mL Urine Color YELLOW Urine Appearance CLEAR Urine pH 7.0 (5.0-8.0) Ur Specific [place] 1.015 (1.001-1.035) Urine Protein NEGATIVE (NEGATIVE) mg/dL Urine Glucose (UA) >=1000 (NEGATIVE) mg/dL Urine Ketones NEGATIVE (NEGATIVE) mg/dL Urine Occult Blood NEGATIVE (NEGATIVE) Urine Nitrite NEGATIVE (NEGATIVE) Urine Bilirubin NEGATIVE (NEGATIVE) Urine Urobilinogen 0.2 (<2.0) EU/dL Ur Leukocyte Esterase NEGATIVE (NEGATIVE) Monoscreen (NEG) 03/03/19 03/03/19 03/03/19 Range/Units 01:40 05:45 05:45 WBC 9.22 (4.0-11.0) K/uL RBC 4.17 L (4.50-5.90) M/uL Hgb 12.8 L (13.0-17.0) g/dL Hct 39.0 (38.0-50.0) % MCV 93.5 (80.0-98.0) fL MCH 30.7 (27.0-32.0) pg MCHC 32.8 (31.0-37.0) g/dL RDW Std Deviation 42.7 (28.0-62.0) fl RDW Coeff of Carol 13 (11.0-15.0) % Plt Count 290 (150-400) K/uL MPV 9.90 (7.40-12.00) fL Neut % (Auto) 71.3 (48.0-80.0) % Lymph % (Auto) 10.5 L (16.0-40.0) % [place] % (Auto) 10.2 (0.0-15.0) % Eos % (Auto) 7.3 H (0.0-7.0) % Baso % (Auto) 0.7 (0.0-1.5) % Neut # (Auto) 6.6 H (1.4-5.7) K/uL Lymph # (Auto) 1.0 (0.6-2.4) K/uL [place] # (Auto) 0.9 H (0.0-0.8) K/uL Eos # (Auto) 0.7 (0.0-0.7) K/uL Baso # (Auto) 0.1 (0.0-0.1) K/uL Nucleated RBC % 0.0 /100WBC Nucleated RBCs # 0 K/uL Lactate 1.3 (0.20-2.00) mmol/L Sodium 141 (136-148) mmol/L Potassium 3.5 (3.5-5.1) mmol/L Chloride 104 (98-107) mmol/L Carbon Dioxide 23.9 (21.0-32.0) mmol/L BUN 6 L (7.0-18.0) mg/dL Creatinine 0.9 (0.8-1.3) mg/dL Est Cr Clr Drug Dosing 89.77 mL/min Estimated GFR (MDRD) > 60.0 ml/min Glucose 152 H (74-106) mg/dL Calcium 8.0 L (8.5-10.1) mg/dL Total Bilirubin 0.2 (0.2-1.0) mg/dL AST 20 (15-37) IU/L ALT 50 (14-63) IU/L Alkaline Phosphatase 56 (46-116) U/L Total Protein 6.7 (6.4-8.2) g/dL Albumin 3.1 L (3.4-5.0) g/dL Globulin 3.6 (2.6-4.0) g/dL Albumin/Globulin Ratio 0.9 (0.9-1.6) TSH 3rd Generation (0.36-3.74) uIU/mL Urine Color Urine Appearance Urine pH (5.0-8.0) Ur Specific [place] (1.001-1.035) Urine Protein (NEGATIVE) mg/dL Urine Glucose (UA) (NEGATIVE) mg/dL Urine Ketones (NEGATIVE) mg/dL Urine Occult Blood (NEGATIVE) Urine Nitrite (NEGATIVE) Urine Bilirubin (NEGATIVE) Urine Urobilinogen (<2.0) EU/dL Ur Leukocyte Esterase (NEGATIVE) Monoscreen (NEG) Result Diagrams: 03/03/19 05:45 03/03/19 05:45 Pete Results Last 24 hrs: Microbiology 03/02/19 18:47 Influenza Type A Antigen Screen - Final Nasopharyngeal Swab NEGATIVE INFLUENZA A VIRUS AG REFERENCE RANGE: NEGATIVE Influenza Type B Antigen Screen - Final NEGATIVE INFLUENZA B VIRUS AG REFERENCE RANGE: NEGATIVE - Problem List (1) URI (upper respiratory infection) SNOMED Code(s): 84399664 ICD Code: J06.9 - ACUTE UPPER RESPIRATORY INFECTION, UNSPECIFIED Status: Acute Priority: High Current Visit: Yes Qualifiers: URI type: unspecified URI Qualified Code(s): J06.9 - Acute upper respiratory infection, unspecified (2) Diabetes mellitus SNOMED Code(s): 14381474 ICD Code: E11.9 - TYPE 2 DIABETES MELLITUS WITHOUT COMPLICATIONS Status: Chronic Priority: High Current Visit: Yes Qualifiers: Diabetes mellitus type: type 2 Diabetes mellitus long-term insulin use: without long-term use Diabetes mellitus complication status: without complication Qualified Code(s): E11.9 - Type 2 diabetes mellitus without complications (3) Elevated lactic acid level SNOMED Code(s): 8499799 ICD Code: R79.89 - OTHER SPECIFIED ABNORMAL FINDINGS OF BLOOD CHEMISTRY Status: Resolved Priority: High Current Visit: Yes (4) Hypertension SNOMED Code(s): 36699466 ICD Code: I10 - ESSENTIAL (PRIMARY) HYPERTENSION Status: Chronic Priority : High Current Visit: Yes Qualifiers: Hypertension type: essential hypertension Qualified Code(s): I10 - Essential (primary) hypertension (5) Multiple sclerosis SNOMED Code(s): 90677834 ICD Code: G35 - MULTIPLE SCLEROSIS Status: Chronic Priority: High Current Visit: Yes (6) Weakness SNOMED Code(s): 28077629 ICD Code: R53.1 - WEAKNESS Status: Acute Priority: High Current Visit: Yes Problem List Initiated/Reviewed/Updated: Yes Orders Last 24hrs: Active Orders 24 hr Category Date Time Status Admission Status [Patient Status] [ADT] Stat ADT 03/02/19 20:32 Active Influenza Vaccine Charge [RC] .DISCHARGE Care 03/03/19 00:08 Active RT Aerosol Therapy [RC] ASDIRECTED Care 03/02/19 18:35 Active Regular Diet [DIET] Diet 03/03/19 Breakfast Active Acetaminophen [Tylenol] Med 03/02/19 23:04 Active 650 mg PO Q6H PRN Aspirin Med 03/03/19 09:00 Ordered 81 mg PO DAILY Benzonatate [Tessalon Perles] Med 03/03/19 04:54 Active 100 mg PO TID PRN Dimethyl Fumarate [Tecfidera] Med 03/03/19 09:00 Ordered 240 mg PO BID Escitalopram Med 03/03/19 09:00 Ordered 20 mg PO DAILY FLU Vacc [id number](6MOS+)/PF [Fluzone Quad Med 03/03/19 09:00 Once Syringe] 60 mcg IM .ONCE ONE Gabapentin [Neurontin] Med 03/03/19 09:00 Ordered 800 mg PO BID Lisinopril [Prinivil] Med 03/03/19 09:00 Ordered 10 mg PO DAILY Omeprazole [Omeprazole] Med 03/03/19 09:00 Ordered 40 mg PO DAILY Ranolazine [Ranexa] Med 03/03/19 09:00 Ordered 1,000 mg PO BID Sodium Chloride 0.9% [Normal Saline] 1,000 ml Med 03/02/19 23:15 Active IV ASDIRECTED Sodium Chloride 0.9% [Saline Flush] Med 03/02/19 20:26 Active 10 ml FLUSH ASDIRECTED PRN Sodium Chloride 0.9% [Saline Flush] Med 03/02/19 20:26 Active 2.5 ml FLUSH ASDIRECTED PRN Umeclidinium Brm/Vilanterol Tr Med 03/03/19 09:00 Ordered 1 puff INH DAILY atorvaSTATin [Lipitor] Med 03/03/19 09:00 Ordered 40 mg PO DAILY cefTRIAXone [Rocephin in Dextrose,Iso-Osm 1 GM/50 ML] 1 Med 03/02/19 23:15 Active gm Premix Bag 1 bag IV Q24H levETIRAcetam [Keppra] Med 03/03/19 09:00 Ordered 500 mg PO BID metFORMIN [Glucophage XR] Med 03/03/19 08:00 Ordered 1,000 mg PO BIDMEALS oxyCODONE Med 03/02/19 23:03 Active 5 mg PO Q4H PRN Saline Lock Insert [OM.PC] Stat Oth 03/02/19 20:26 Ordered Medication Orders Acetaminophen (Tylenol) 650 mg PO Q6H PRN PRN Reason: Pain (mild 1-3) Aspirin (Aspirin) 81 mg PO DAILY [facility] Atorvastatin Calcium (Lipitor) 40 mg PO DAILY [facility] Benzonatate (Tessalon Perles) 100 mg PO TID PRN PRN Reason: Cough Last Admin: 03/03/19 05:03 Dose: 100 mg Gabapentin (Neurontin) 800 mg PO BID [facility] Ceftriaxone Sodium/Dextrose 1 (gm/ Premix) 50 mls @ 100 mls/hr IV Q24H VITALIY Last Admin: 03/02/19 23:43 Dose: 100 mls/hr Sodium Chloride (Normal Saline) 1,000 mls @ 125 mls/hr IV ASDIRECTED VITALIY Last Admin: 03/02/19 23:38 Dose: 125 mls/hr Influenza Virus Vaccine (Fluzone Quad [id number] Syringe) 60 mcg IM .ONCE ONE Stop: 03/03/19 09:01 Levetiracetam (Keppra) 500 mg PO BID [facility] Lisinopril (Prinivil) 10 mg PO DAILY [facility] Metformin HCl (Glucophage Xr) 1,000 mg PO BIDMEALS [facility] Non-Formulary Medication (Dimethyl Fumarate [Tecfidera]) 240 mg PO BID [facility] Non-Formulary Medication (Escitalopram) 20 mg PO DAILY [facility] Non-Formulary Medication (Omeprazole [Omeprazole]) 40 mg PO DAILY [facility] Non-Formulary Medication (Ranolazine [Ranexa]) 1,000 mg PO BID [facility] Non-Formulary Medication (Umeclidinium Brm/Vilanterol Tr) 1 puff INH DAILY [facility] Oxycodone HCl (Oxycodone) 5 mg PO Q4H PRN PRN Reason: Pain (moderate 4-6) Last Admin: 03/02/19 23:51 Dose: 5 mg Sodium Chloride (Saline Flush) 10 ml FLUSH ASDIRECTED PRN PRN Reason: Keep Vein Open Sodium Chloride (Saline Flush) 2.5 ml FLUSH ASDIRECTED PRN PRN Reason: Keep Vein Open Assessment/Plan Comment:: The patient is a 53-year-old gentleman who has multiple medical problems. He'll be admitted primarily out of concern for fatigue and weakness. I've also elected to treat the patient with Solu-Medrol 1 g IV daily divided into 4 doses for his MS exacerbation. The patient will be kept on appropriate ADA diet along with Accu-Cheks before meals and at bedtime as well as high-dose sliding scale insulin secondary to his steroid usage. Patient will also have an A1c ordered. He is also being maintained on ceftriaxone 1 g IV daily for upper respiratory infection. The patient also be kept on IV fluids at 125 mL per hour because previously he had an elevation in his lactic acid. He did not meet necessary requirements for consideration of sepsis. The patient will also be monitored and his antihypertensive medications will be adjusted as necessary. Because of the patient's MS I've ordered physical and occupational therapy to evaluate and treat the patient. He should be appropriate for discharge in 1-2 days. Repeat laboratory studies have been ordered. - Mortality Measure Prognosis:: Good
[2019-03-03] MEDS: Sodium Chloride 0.9% 1,000 ML IV SCH ×2 (07:19→17:05)
[2019-03-03] MEDS ORDERED: Morphine 2 MG/ML Syringe IVPUSH PRN (08:07)
[2019-03-03] MEDS ORDERED: Docusate Sodium 100 MG Cap PO PRN (08:07)
[2019-03-03] MEDS ORDERED: methylPREDNISolone Sodium Succinate 1,000 MG/8 ML SDV IV SCH (08:15)
[2019-03-03] MEDS: Omeprazole 20 MG Cap.CR PO SCH (08:28)
[2019-03-03] MEDS: metFORMIN 500 MG Tab.ER PO SCH ×2 (08:29→19:50)
[2019-03-03] MEDS: Gabapentin 800 MG Tab PO SCH ×2 (08:30→20:39)
[2019-03-03] MEDS: atorvaSTATin 40 MG Tab PO SCH (08:30)
[2019-03-03] MEDS: levETIRAcetam 500 MG Tab PO SCH ×2 (08:31→20:39)
[2019-03-03] MEDS: Lisinopril 10 MG Tab PO SCH (08:32)
[2019-03-03] MEDS: Escitalopram 10 MG Tab PO SCH (08:33)
[2019-03-03] MEDS: Aspirin 81 MG Tab.Chew PO SCH (08:33)
[2019-03-03] MEDS: Enoxaparin 40 MG/0.4 ML Syringe SUBCUT SCH (08:34)
[2019-03-03] MEDS ORDERED: FLU Vacc QS2019-20(6MOS+)/PF 60 MCG/0.5 ML SYRINGE IM ONE (09:00)
[2019-03-03] MEDS: Dimethyl Fumarate [Tecfidera] 240 MG PO SCH ×2 (09:00→22:10)
[2019-03-03] MEDS: UMECLIDINIUM BRM INH SCH (11:10)
[2019-03-03] MEDS: VILANTEROL INH SCH (11:10)
[2019-03-03] MEDS: Insulin Aspart 100 Units/ML 3 ML Pen SUBCUT SCH ×2 (12:50→17:09)
[2019-03-03] MEDS: cefTRIAXone 1 GM in Premix Bag 1 BAG IV SCH (22:53)
[2019-03-03] MEDS: oxyCODONE 5 MG Tab PO PRN (22:58)
[2019-03-04] MEDS: Sodium Chloride 0.9% 1,000 ML IV SCH (01:33)
[2019-03-04] MEDS: Omeprazole 20 MG Cap.CR PO SCH (06:44)
[2019-03-04 07:08] LABS: BLOOD UREA NITROGEN,BUN 12 mg/dL (7.0-18.0); CHLORIDE,CL 102 mmol/L (98-107); GLUCOSE RANDOM 266 mg/dL (74-106); POTASSIUM,K 3.6 mmol/L (3.5-5.1); SODIUM,NA 139 mmol/L (136-148)
[2019-03-04] MEDS ORDERED: metFORMIN 500 MG Tab.ER PO SCH (08:00)
[2019-03-04] MEDS: Lisinopril 10 MG Tab PO SCH (08:17)
[2019-03-04] MEDS: Enoxaparin 40 MG/0.4 ML Syringe SUBCUT SCH (08:17)
[2019-03-04] MEDS: atorvaSTATin 40 MG Tab PO SCH (08:19)
[2019-03-04] MEDS: Gabapentin 800 MG Tab PO SCH (08:19)
[2019-03-04] MEDS: Aspirin 81 MG Tab.Chew PO SCH (08:19)
[2019-03-04] MEDS: levETIRAcetam 500 MG Tab PO SCH (08:19)
[2019-03-04] MEDS: Escitalopram 10 MG Tab PO SCH (08:19)
[2019-03-04] MEDS: Dimethyl Fumarate [Tecfidera] 240 MG PO SCH (08:20)
[2019-03-04] MEDS: Insulin Aspart 100 Units/ML 3 ML Pen SUBCUT SCH ×2 (08:28→11:40)
[2019-03-04] MEDS: UMECLIDINIUM BRM INH SCH (08:38)
[2019-03-04] MEDS: VILANTEROL INH SCH (08:38)
--- NOTE | 2019-03-04 10:38 | PCM.DCSUM1 ---
Discharge Summary - Hospital Course Diagnosis: Stroke: No - Discharge Data Discharge Date: 03/04/19 Discharge Disposition: Home, Self-Care 01 Condition: Good - Referral to Home Health Primary Care Physician: PCP Unknown - Discharge Diagnosis/Problem(s) (1) URI (upper respiratory infection) SNOMED Code(s): 06351113 ICD Code: J06.9 - ACUTE UPPER RESPIRATORY INFECTION, UNSPECIFIED Status: Resolved Priority: High Current Visit: Yes Qualifiers: URI type: unspecified URI Qualified Code(s): J06.9 - Acute upper respiratory infection, unspecified (2) Diabetes mellitus SNOMED Code(s): 81685807 ICD Code: E11.9 - TYPE 2 DIABETES MELLITUS WITHOUT COMPLICATIONS Status: Chronic Priority: High Current Visit: Yes Qualifiers: Diabetes mellitus type: type 2 Diabetes mellitus terminal carman insulin use: without prison use Diabetes mellitus complication status: without complication Qualified Code(s): E11.9 - Type 2 diabetes mellitus without complications (3) Elevated lactic acid level SNOMED Code(s): 9925399 ICD Code: R79.89 - OTHER SPECIFIED ABNORMAL FINDINGS OF BLOOD CHEMISTRY Status: Resolved Priority: High Current Visit: Yes (4) Hypertension SNOMED Code(s): 31348885 ICD Code: I10 - ESSENTIAL (PRIMARY) HYPERTENSION Status: Chronic Priority : High Current Visit: Yes Qualifiers: Hypertension type: essential hypertension Qualified Code(s): I10 - Essential (primary) hypertension (5) Multiple sclerosis SNOMED Code(s): 75448058 ICD Code: G35 - MULTIPLE SCLEROSIS Status: Chronic Priority: High Current Visit: Yes (6) Weakness SNOMED Code(s): 65828620 ICD Code: R53.1 - WEAKNESS Status: Resolved Priority: High Current Visit: Yes - Patient Summary/Data Consults: Consultations 03/03/19 08:07 OT Evaluation and Treatment [CONS] Routine PT Evaluation and Treatment [CONS] Routine Hospital Course: The patient is a 53-year-old gentleman who presented to the emergency department on 3 separate occasions subjective shortness of breath, cough, fevers and chills. The patient had been previously prescribed prednisone taper on January 18, 2019. The patient says that he has been feeling weak and is concerned about exacerbation of his multiple sclerosis and he has had some weakness and inability to ambulate that he does attribute to his MS. The patient was admitted due to upper respiratory infection as well as exacerbation of his multiple sclerosis. The patient had some weakness in his lower extremities and some tingling in his left arm. The patient was initially started on ceftriaxone and he tolerated this well. Because of the concern for the patient's exacerbation of his multiple sclerosis he was placed on Solu- Medrol 1 g IV divided by 4 doses. Overnight the patient had continued to improve rapidly. His symptoms had essentially resolved. His weakness had improved to the point that he was able to ambulate without difficulty. A telephone conversation was held with local neurologist, Dr. Phelps, who had suggested that the patient follow-up with her tomorrow at 4:30 in order to receive medication for multiple sclerosis. I discharge the patient on high-dose prednisone with in order to taper after 2 weeks. The patient otherwise has been tolerating his diet. He is recommended continue with his diabetic diet as tolerated. He is also to have activity as tolerated. The patient has been hemodynamically stable and he is discharged from acute hospitalization with recommendations listed above. - Patient Instructions Diet: Heart Healthy Diet Activity: As Tolerated Notify Provider of: Fever, Increased Pain - Discharge Plan *PRESCRIPTION DRUG MONITORING PROGRAM REVIEWED*: No *COPY OF PRESCRIPTION DRUG MONITORING REPORT IN PATIENT SOPHIA: No Prescriptions/Med Rec: Dimethyl Fumarate [Tecfidera] 240 mg PO BID #60 capsule. predniSONE [Prednisone] 50 mg PO DAILY #60 tablet Home Medications: Home Meds Aspirin 81 mg PO DAILY 01/08/19 [History] Escitalopram [Lexapro] 20 mg PO DAILY 01/08/19 [History] Gabapentin [Neurontin] 800 mg PO BID 01/08/19 [History] Lisinopril 10 mg PO DAILY 01/08/19 [History] Omeprazole 40 mg PO DAILY 01/08/19 [History] Ranolazine [Ranexa] 1,000 mg PO BID 01/08/19 [History] atorvaSTATin [Lipitor] 40 mg PO DAILY 01/08/19 [History] levETIRAcetam [Keppra] 500 mg PO BID 01/08/19 [History] metFORMIN [Glucophage XR] 1,000 mg PO BIDMEALS 01/08/19 [History] Multivit with Iron,Minerals [Spectravite Senior] 1 tab PO DAILY 01/24/19 [ History] Albuterol/Ipratropium [DuoNeb 3.0-0.5 MG/3 ML] 3 ml .XX TID PRN #20 neb [Rx] Umeclidinium Brm/Vilanterol Tr [Anoro Ellipta 62.5-25 MCG] 1 puff INH DAILY 11/13 [History] Dimethyl Fumarate [Tecfidera] 240 mg PO BID #60 capsule. 03/04/19 [Rx] predniSONE [Prednisone] 50 mg PO DAILY #60 tablet 03/04/19 [Rx] Oxygen Therapy Mode: Room Air Patient Handouts: Dimethyl Fumarate oral delayed-release capsules, Weakness, [id number], Prednisone tablets Referrals: [facility] [Outside] Juana Phelps MD [Physician] - 03/05/19 4:30 pm (February,) Venkatesh Last MD [Ordering Only Provider] - 03/14/19 12:30 pm - Discharge Summary/Plan Comment DC Time >30 min.: Yes - General Info Date of Service: 03/04/19 Admission Dx/Problem (Free Text: Admission Diagnosis/Problem Admission Diagnosis/Problem Weakness, fatigue, MS exacerbation, upper respiratory infection Subjective Update: The patient is doing much better today. His symptoms have resolved. Functional Status: Reports: Pain Controlled - Review of Systems General: Reports: No Symptoms HEENT: Reports: No Symptoms Pulmonary: Reports: No Symptoms Cardiovascular: Reports: No Symptoms Gastrointestinal: Reports: No Symptoms Genitourinary: Reports: No Symptoms Musculoskeletal: Reports: No Symptoms Skin: Reports: No Symptoms Neurological: Reports: No Symptoms Psychiatric: Reports: No Symptoms - Patient Data Vitals - Most Recent: Last Vital Signs Temp 36.2 C 03/04/19 07:41 Pulse 80 03/04/19 07:41 Resp 18 03/04/19 07:41 BP 109/56 L 03/04/19 08:17 Pulse Ox 95 03/04/19 07:41 Weight - Most Recent: 112.446 kg I&O - Last 24 hours: Intake & Output 03/03/19 03/04/19 03/04/19 22:59 06:59 14:59 Intake Total 3000 1828 Output Total 450 Balance 2550 1828 Lab Results - Last 24 hrs: Laboratory Results - last 24 hr 03/03/19 03/03/19 03/03/19 Range/Units 12:42 16:20 20:25 WBC (4.0-11.0) K/uL RBC (4.50-5.90) M/uL Hgb (13.0-17.0) g/dL Hct (38.0-50.0) % MCV (80.0-98.0) fL MCH (27.0-32.0) pg MCHC (31.0-37.0) g/dL RDW Std Deviation (28.0-62.0) fl RDW Coeff of Carol (11.0-15.0) % Plt Count (150-400) K/uL MPV (7.40-12.00) fL Neut % (Auto) (48.0-80.0) % Lymph % (Auto) (16.0-40.0) % [place] % (Auto) (0.0-15.0) % Eos % (Auto) (0.0-7.0) % Baso % (Auto) (0.0-1.5) % Neut # (Auto) (1.4-5.7) K/uL Lymph # (Auto) (0.6-2.4) K/uL [place] # (Auto) (0.0-0.8) K/uL Eos # (Auto) (0.0-0.7) K/uL Baso # (Auto) (0.0-0.1) K/uL Nucleated RBC % /100WBC Nucleated RBCs # K/uL Sodium (136-148) mmol/L Potassium (3.5-5.1) mmol/L Chloride (98-107) mmol/L Carbon Dioxide (21.0-32.0) mmol/L BUN (7.0-18.0) mg/dL Creatinine (0.8-1.3) mg/dL Est Cr Clr Drug Dosing mL/min Estimated GFR (MDRD) ml/min Glucose (74-106) mg/dL POC Glucose 222 H 278 H 280 H (60-110) mg/dL Calcium (8.5-10.1) mg/dL Total Bilirubin (0.2-1.0) mg/dL AST (15-37) IU/L ALT (14-63) IU/L Alkaline Phosphatase (46-116) U/L Total Protein (6.4-8.2) g/dL Albumin (3.4-5.0) g/dL Globulin (2.6-4.0) g/dL Albumin/Globulin Ratio (0.9-1.6) 03/04/19 03/04/19 03/04/19 Range/Units 06:39 06:39 06:46 WBC 14.42 H (4.0-11.0) K/uL RBC 4.24 L (4.50-5.90) M/uL Hgb 13.0 (13.0-17.0) g/dL Hct 39.2 (38.0-50.0) % MCV 92.5 (80.0-98.0) fL MCH 30.7 (27.0-32.0) pg MCHC 33.2 (31.0-37.0) g/dL RDW Std Deviation 42.3 (28.0-62.0) fl RDW Coeff of Carol 13 (11.0-15.0) % Plt Count 306 (150-400) K/uL MPV 9.40 (7.40-12.00) fL Neut % (Auto) 92.0 H (48.0-80.0) % Lymph % (Auto) 6.0 L (16.0-40.0) % [place] % (Auto) 1.8 (0.0-15.0) % Eos % (Auto) 0.1 (0.0-7.0) % Baso % (Auto) 0.1 (0.0-1.5) % Neut # (Auto) 13.3 H (1.4-5.7) K/uL Lymph # (Auto) 0.9 (0.6-2.4) K/uL [place] # (Auto) 0.3 (0.0-0.8) K/uL Eos # (Auto) 0.0 (0.0-0.7) K/uL Baso # (Auto) 0.0 (0.0-0.1) K/uL Nucleated RBC % 0.0 /100WBC Nucleated RBCs # 0 K/uL Sodium 139 (136-148) mmol/L Potassium 3.6 (3.5-5.1) mmol/L Chloride 102 (98-107) mmol/L Carbon Dioxide 22.0 (21.0-32.0) mmol/L BUN 12 (7.0-18.0) mg/dL Creatinine 1.1 (0.8-1.3) mg/dL Est Cr Clr Drug Dosing 73.44 mL/min Estimated GFR (MDRD) > 60.0 ml/min Glucose 266 H (74-106) mg/dL POC Glucose 252 H (60-110) mg/dL Calcium 8.0 L (8.5-10.1) mg/dL Total Bilirubin 0.2 (0.2-1.0) mg/dL AST 18 (15-37) IU/L ALT 53 (14-63) IU/L Alkaline Phosphatase 64 (46-116) U/L Total Protein 7.0 (6.4-8.2) g/dL Albumin 3.1 L (3.4-5.0) g/dL Globulin 3.9 (2.6-4.0) g/dL Albumin/Globulin Ratio 0.8 L (0.9-1.6) Med Orders - Current: Current Medications Acetaminophen (Tylenol) 650 mg PO Q6H PRN PRN Reason: Pain (mild 1-3) Aspirin (Aspirin) 81 mg PO DAILY [facility] Last Admin: 03/04/19 08:19 Dose: 81 mg Atorvastatin Calcium (Lipitor) 40 mg PO DAILY [facility] Last Admin: 03/04/19 08:19 Dose: 40 mg Benzonatate (Tessalon Perles) 100 mg PO TID PRN PRN Reason: Cough Last Admin: 03/03/19 05:03 Dose: 100 mg Docusate Sodium (Colace) 100 mg PO BID PRN PRN Reason: Constipation Enoxaparin Sodium (Lovenox) 40 mg SUBCUT Q24H [facility] Last Admin: 03/04/19 08:17 Dose: 40 mg Escitalopram Oxalate (Lexapro) 20 mg PO DAILY [facility] Last Admin: 03/04/19 08:19 Dose: 20 mg Gabapentin (Neurontin) 800 mg PO BID [facility] Last Admin: 03/04/19 08:19 Dose: 800 mg Ceftriaxone Sodium/Dextrose 1 (gm/ Premix) 50 mls @ 100 mls/hr IV Q24H [facility] Last Admin: 03/03/19 22:53 Dose: 100 mls/hr Sodium Chloride (Normal Saline) 1,000 mls @ 125 mls/hr IV ASDIRECTED [facility] Last Admin: 03/04/19 01:33 Dose: 125 mls/hr Methylprednisolone Sodium Succinate 250 mg/ Sodium Chloride 102 mls @ 102 mls/ hr IV Q6H [facility] Last Admin: 03/04/19 08:32 Dose: 102 mls/hr Insulin Aspart (Novolog) 0 unit SUBCUT TIDAC [facility]; Protocol Last Admin: 03/04/19 08:28 Dose: 9 units Levetiracetam (Keppra) 500 mg PO BID [facility] Last Admin: 03/04/19 08:19 Dose: 500 mg Lisinopril (Prinivil) 10 mg PO DAILY [facility] Last Admin: 03/04/19 08:17 Dose: 10 mg Metformin HCl (Glucophage Xr) 1,000 mg PO BID@0800,1900 [facility] Last Admin: 03/04/19 08:18 Dose: 1,000 mg Omeprazole (Omeprazole) 40 mg PO ACBREAKFAST [facility] Last Admin: 03/04/19 06:44 Dose: 40 mg Oxycodone HCl (Oxycodone) 5 mg PO Q4H PRN PRN Reason: Pain (moderate 4-6) Last Admin: 03/03/19 22:58 Dose: 5 mg Dimethyl Fumarate [ (Tecfidera] 240 Mg) 0 each PO BID [facility] Last Admin: 03/04/19 08:20 Dose: 1 each Umeclidinium Brm/ (Vilanterol (Anoro)) 1 each INH DAILY [facility] Last Admin: 03/04/19 08:38 Dose: 1 each Ranolazine (Ranexa) 1,000 mg PO BID [facility] Last Admin: 03/04/19 08:18 Dose: 1,000 mg Sodium Chloride (Saline Flush) 10 ml FLUSH ASDIRECTED PRN PRN Reason: Keep Vein Open Sodium Chloride (Saline Flush) 2.5 ml FLUSH ASDIRECTED PRN PRN Reason: Keep Vein Open Discontinued Medications Albuterol/Ipratropium (Duoneb 3.0-0.5 Mg/3 Ml) 3 ml NEB ONETIME ONE Stop: 03/02/19 18:36 Last Admin: 03/02/19 18:47 Dose: 3 ml Sodium Chloride (Normal Saline) 1,000 mls @ 999 mls/hr IV STAT ONE Stop: 03/02/19 22:32 Last Admin: 03/02/19 21:43 Dose: 999 mls/hr Influenza Virus Vaccine (Pharmacy To Dose - Influenza Vaccine) 1 each IM ONETIME ONE Stop: 03/03/19 09:01 Influenza Virus Vaccine (Fluzone Quad [id number] Syringe) 60 mcg IM .ONCE ONE Stop: 03/03/19 09:01 Metformin HCl (Glucophage Xr) 1,000 mg PO BIDMEALS [facility] Last Admin: 03/03/19 19:50 Dose: 1,000 mg Morphine Sulfate (Morphine) 2 mg IVPUSH Q2H PRN PRN Reason: Pain (severe 7-10) Stop: 03/04/19 08:09 - Exam Quality Assessment: Denies: Supplemental Oxygen General: Reports: Alert, Oriented, Cooperative, No Acute Distress HEENT: Reports: Pupils Equal, Pupils Reactive, EOMI, Mucous Membr. Moist/[place] Neck: Reports: Supple, Trachea Midline Lungs: Reports: Clear to Auscultation, Normal Respiratory Effort Cardiovascular: Reports: Regular Rate, Regular Rhythm GI/Abdominal Exam: Normal Bowel Sounds, No Distention. No: Guarding, Rigid, Rebound Back Exam: Reports: Normal Inspection, Full Range of Motion Extremities: Normal Inspection, No Pedal Edema Skin: Reports: Warm, Dry, Intact Neurological: Reports: No New Focal Deficit, Normal Gait, Normal Tone, Strength Equal Bilateral, Sensation Intact Psy/Mental Status: Reports: Alert, Normal Affect, Normal Mood
== END 2019-03-04 11:45 | disposition home or self-care (01) ==
LOC: MW.ED 18:25 → MW.MS 20:32
PROVIDERS: ADMIT Internal Medicine; ATTEND Internal Medicine
DX: J06.9 Acute upper respiratory infection, unspecified (principal); G35 Multiple sclerosis; R53.1 Weakness; R53.83 Other fatigue; E11.9 Type 2 diabetes mellitus without complications; I10 Essential (primary) hypertension; R79.89 Other specified abnormal findings of blood chemistry; Z79.899 Other long term (current) drug therapy; Z79.82 Long term (current) use of aspirin; Z79.84 Long term (current) use of oral hypoglycemic drugs
CPT/HCPCS: 36415; 71045; 80053; 81003; 82962; 83036; 83605; 84443; 85025; 86308; 87804; 90471; 90686; 94640; 94664; 96361; 96365; 96366; 96367; 96372; 96376; 97161; 99284; A9270; G0378; J0696; J1650; J1815; J2930; J7030; J7040; 96360; G0008; J7620-GY